=== PATIENT | female | born 1980 | race Caucasian/White ===

== ENCOUNTER 2018-04-04 20:10 | Emergency (ER) | payer OTHER ==
[~2018-04-04] VITALS: Ht 162.6 cm; Wt 62.0 kg
[2018-04-04] MEDS ORDERED: LORazepam 1 MG tablet PO ONE (20:25)
[2018-04-04 21:28] LABS: ALANINE AMINOTRANSFERASE 21 U/L (12-78); ALBUMIN 3.9 G/DL (3.4-5.0); ALBUMIN/GLOBULIN RATIO 1.2 (1.1-1.5); ALKALINE PHOSPHATASE 57 IU/L (46-116); ANION GAP 8 (8-16); ASPARTATE AMINO TRANSFERASE 12 U/L (10-37); BILIRUBIN,TOTAL 0.7 MG/DL (0.1-1.0); BLOOD UREA NITROGEN 6 MG/DL (7-18); BUN/CREATININE RATIO 7.5 (6.6-38.0); CALCIUM 8.8 MG/DL (8.5-10.1); CHLORIDE 104 MMOL/L (99-107); GLUCOSE 104 MG/DL (70-104); POTASSIUM 3.6 MMOL/L (3.5-5.1); SODIUM 138 MMOL/L (135-145); TOTAL CARBON DIOXIDE 26.4 MMOL/L (24-32); TOTAL PROTEIN 7.1 G/DL (6.4-8.2); eGFR 82 ML/MIN
[2018-04-04 21:30] LABS: BASOPHILS # (AUTO) 0.1 X10'3 (0-0.2); BASOPHILS % (AUTO) 0.9 % (0-1); EOSINOPHILS # (AUTO) 0.1 X10'3 (0-0.9); HEMOGLOBIN 12.9 g/dl (12.0-16.0); LYMPHOCYTES # (AUTO) 1.4 X10'3 (1.1-4.8); LYMPHOCYTES % (AUTO) 20.6 % (21-51); MEAN CORPUSCULAR HGB CONC 33.8 % (33.0-36.5); MEAN CORPUSCULAR VOLUME 88.7 FL (78-98); MEAN PLATELET VOLUME 11.2 FL (7.4-10.4); MONOCYTES # (AUTO) 0.7 X10'3 (0-0.9); MONOCYTES % (AUTO) 10.3 % (2-12); NEUTROPHILS # (AUTO) 4.3 X10'3 (1.8-7.7); NEUTROPHILS % (AUTO) 66.2 % (42-75); PLATELET COUNT 155 X10'3 (140-440); RED BLOOD COUNT 4.28 X10'6 (4.20-5.60); RED CELL DISTRIBUTION WIDTH 12.8 % (11.5-14.5); WHITE BLOOD COUNT 6.6 X10'3 (4.5-11.0)
[2018-04-04 21:41] LABS: ACETAMINOPHEN < 2.0 UG/ML (10-30)
[2018-04-04 21:47] LABS: ETHANOL < 0.010 GM/DL (0.0-0.010)
[2018-04-04 21:51] LABS: CLARITY,URINE SLIGHTLY CLOUDY (Clear); COLOR,URINE YELLOW (Yellow); GLUCOSE, URINE NEGATIVE (Neg); KETONES,URINE 15 mg/dl (Neg); LEUKOCYTE ESTERASE ,URINE LARGE (Neg); NITRITES, URINE NEGATIVE (Neg); OCCULT BLOOD,URINE LARGE (Neg); PROTEIN,URINE NEGATIVE (Neg); UROBILINOGEN,URINE 0.2 E.U/dL (0.2-1.0)
[2018-04-04 21:53] LABS: URINE HCG NEGATIVE (NEG)
[2018-04-04 22:03] LABS: URINE AMPHETAMINE SCREEN NEGATIVE (Neg); URINE BARBITUATE SCREEN NEGATIVE (Neg); URINE BENZODIAZEPINES SCREEN NEGATIVE (Neg); URINE CANNABINOID SCREEN NEGATIVE (Neg); URINE COCAINE SCREEN NEGATIVE (Neg); URINE METHADONE SCREEN NEGATIVE (Neg); URINE OPIATE SCREEN NEGATIVE (Neg); URINE PHENCYCLIDINE SCREEN NEGATIVE (Neg)
[2018-04-04 22:07] LABS: UA COLLECTION TYPE CLN CATCH MIDSTREAM
[2018-04-04 22:08] LABS: RBC,URINE 20-50 /HPF (0-2); WBC,URINE 50-100 /HPF (0-4)
[2018-04-04 22:09] LABS: BACTERIA,URINE 2+ /HPF (Neg); SQUAMOUS EPITHELIAL CELL,UR FEW /LPF (FEW)
[2018-04-04] MEDS ORDERED: CIPR-259 PO (22:23)
[2018-04-04] MEDS ORDERED: LORA1TAB PO (22:23)
[2018-04-04] MEDS ORDERED: ciprofloxacin 250mg tablet PO ONE (22:25)
[2018-04-04 22:36] VITALS: BP 137/70
== END 2018-04-04 22:38 | disposition home or self-care (01) ==
LOC: ER 20:11
DX: N39.0 Urinary tract infection, site not specified (principal); F41.9 Anxiety disorder, unspecified; Z79.899 Other long term (current) drug therapy
CPT/HCPCS: 36415; 80053; 80305; 80320; 80329; 81001; 81025; 82948; 84443; 85025; 99284

== ENCOUNTER 2018-04-05 17:25 | Emergency (ER) | payer OTHER ==
[~2018-04-05] VITALS: Ht 170.2 cm; Wt 66.0 kg
[~2018-04-05 17:25] MED LIST: CIPR-259 PO; LORA1TAB PO
[2018-04-05 18:17] LABS: BASOPHILS % (AUTO) 0.4 % (0-1); EOSINOPHILS # (AUTO) 0.1 X10'3 (0-0.9); EOSINOPHILS % (AUTO) 1.3 % (0-6); HEMATOCRIT 40.6 % (35.0-45.0); LYMPHOCYTES # (AUTO) 1.2 X10'3 (1.1-4.8); LYMPHOCYTES % (AUTO) 16.3 % (21-51); MEAN CORPUSCULAR HEMOGLOBIN 30.5 PG (27.0-31.0); MEAN CORPUSCULAR HGB CONC 34.4 % (33.0-36.5); MEAN CORPUSCULAR VOLUME 88.5 FL (78-98); MEAN PLATELET VOLUME 10.8 FL (7.4-10.4); MONOCYTES # (AUTO) 0.6 X10'3 (0-0.9); MONOCYTES % (AUTO) 8.2 % (2-12); NEUTROPHILS # (AUTO) 5.3 X10'3 (1.8-7.7); NEUTROPHILS % (AUTO) 73.8 % (42-75); PLATELET COUNT 177 X10'3 (140-440); RED BLOOD COUNT 4.58 X10'6 (4.20-5.60); WHITE BLOOD COUNT 7.2 X10'3 (4.5-11.0)
[2018-04-05 18:32] LABS: ALANINE AMINOTRANSFERASE 24 U/L (12-78); ALBUMIN 4.1 G/DL (3.4-5.0); ALBUMIN/GLOBULIN RATIO 1.1 (1.1-1.5); ALKALINE PHOSPHATASE 71 IU/L (46-116); ANION GAP 6 (8-16); ASPARTATE AMINO TRANSFERASE 9 U/L (10-37); BILIRUBIN,TOTAL 0.8 MG/DL (0.1-1.0); BLOOD UREA NITROGEN 10 MG/DL (7-18); BUN/CREATININE RATIO 13.7 (6.6-38.0); CALCIUM 9.2 MG/DL (8.5-10.1); CHLORIDE 103 MMOL/L (99-107); CREATININE 0.73 MG/DL (0.40-0.90); GLUCOSE 104 MG/DL (70-104); POTASSIUM 3.7 MMOL/L (3.5-5.1); SODIUM 138 MMOL/L (135-145); TOTAL CARBON DIOXIDE 29.3 MMOL/L (24-32); TOTAL PROTEIN 7.7 G/DL (6.4-8.2); eGFR > 90 ML/MIN
[2018-04-05 18:42] LABS: ETHANOL < 0.010 GM/DL (0.0-0.010)
[2018-04-05 19:32] LABS: CLARITY,URINE CLEAR (Clear); COLOR,URINE YELLOW (Yellow); GLUCOSE, URINE NEGATIVE (Neg); KETONES,URINE NEGATIVE (Neg); LEUKOCYTE ESTERASE ,URINE SMALL (Neg); NITRITES, URINE NEGATIVE (Neg); OCCULT BLOOD,URINE LARGE (Neg); PROTEIN,URINE NEGATIVE (Neg); UROBILINOGEN,URINE 0.2 E.U/dL (0.2-1.0)
[2018-04-05 19:34] LABS: URINE HCG NEGATIVE (NEG)
[2018-04-05 19:36] LABS: UA COLLECTION TYPE CLN CATCH MIDSTREAM
[2018-04-05 19:46] LABS: URINE AMPHETAMINE SCREEN NEGATIVE (Neg); URINE BARBITUATE SCREEN NEGATIVE (Neg); URINE BENZODIAZEPINES SCREEN NEGATIVE (Neg); URINE CANNABINOID SCREEN NEGATIVE (Neg); URINE COCAINE SCREEN NEGATIVE (Neg); URINE METHADONE SCREEN NEGATIVE (Neg); URINE OPIATE SCREEN NEGATIVE (Neg); URINE PHENCYCLIDINE SCREEN NEGATIVE (Neg)
[2018-04-05 19:49] LABS: BACTERIA,URINE FEW /HPF (Neg); SQUAMOUS EPITHELIAL CELL,UR FEW /LPF (FEW)
[2018-04-06] MEDS ORDERED: LORazepam 1 MG tablet PO ONE (02:25)
[2018-04-06 07:34] LABS: CLARITY,URINE SLIGHTLY CLOUDY (Clear); COLOR,URINE STRAW (Yellow); GLUCOSE, URINE NEGATIVE (Neg); KETONES,URINE TRACE mg/dl (Neg); LEUKOCYTE ESTERASE ,URINE TRACE (Neg); NITRITES, URINE NEGATIVE (Neg); OCCULT BLOOD,URINE LARGE (Neg); PROTEIN,URINE NEGATIVE (Neg); UA COLLECTION TYPE CLN CATCH MIDSTREAM; UROBILINOGEN,URINE 0.2 E.U/dL (0.2-1.0)
[2018-04-06 07:44] LABS: BACTERIA,URINE FEW /HPF (Neg); RBC,URINE TNTC /HPF (0-2); SQUAMOUS EPITHELIAL CELL,UR FEW /LPF (FEW)
[2018-04-06] MEDS ORDERED: sulfamethoxazole/trimethoprim DS (800/160mg) tablet PO SCH (08:00)
[2018-04-06] MEDS ORDERED: LORazepam 1 MG tablet PO PRN (10:00)
[2018-04-06 17:31] VITALS: BP 107/65
[2018-04-06] MEDS ORDERED: lactobacillus rhamnosus 10,000 MMU CELLS/CAPSULE PO SCH (20:00)
[2018-04-06] MEDS ORDERED: quetiapine 100mg tablet PO SCH (21:00)
== END 2018-04-06 19:06 ==
LOC: ER 17:26
DX: F22 Delusional disorders (principal); F43.9 Reaction to severe stress, unspecified; F41.9 Anxiety disorder, unspecified; Z79.899 Other long term (current) drug therapy
CPT/HCPCS: 36415; 80053; 80305; 80320; 81001; 81025; 84443; 85025; 87088; 99285

== ENCOUNTER 2018-04-28 23:04 | Emergency (ER) | payer OTHER ==
[~2018-04-28] VITALS: Ht 170.2 cm; Wt 64.0 kg
[~2018-04-28 23:04] MED LIST changes: -CIPR-259 PO
[2018-04-28 23:08] VITALS: BP 121/64
[2018-04-29 02:16] LABS: BASOPHILS % (AUTO) 1.1 % (0-1); EOSINOPHILS # (AUTO) 0.1 X10'3 (0-0.9); EOSINOPHILS % (AUTO) 2.6 % (0-6); HEMATOCRIT 38.4 % (35.0-45.0); HEMOGLOBIN 13.1 g/dl (12.0-16.0); LYMPHOCYTES # (AUTO) 1.4 X10'3 (1.1-4.8); LYMPHOCYTES % (AUTO) 31.3 % (21-51); MEAN CORPUSCULAR HEMOGLOBIN 30.7 PG (27.0-31.0); MEAN CORPUSCULAR HGB CONC 34.2 % (33.0-36.5); MEAN CORPUSCULAR VOLUME 89.7 FL (78-98); MEAN PLATELET VOLUME 10.9 FL (7.4-10.4); MONOCYTES # (AUTO) 0.5 X10'3 (0-0.9); MONOCYTES % (AUTO) 10.7 % (2-12); NEUTROPHILS # (AUTO) 2.4 X10'3 (1.8-7.7); NEUTROPHILS % (AUTO) 54.3 % (42-75); PLATELET COUNT 136 X10'3 (140-440); RED BLOOD COUNT 4.28 X10'6 (4.20-5.60); RED CELL DISTRIBUTION WIDTH 12.8 % (11.5-14.5); WHITE BLOOD COUNT 4.5 X10'3 (4.5-11.0)
[2018-04-29 02:21] LABS: ALANINE AMINOTRANSFERASE 19 U/L (12-78); ALBUMIN/GLOBULIN RATIO 1.3 (1.1-1.5); ALKALINE PHOSPHATASE 62 IU/L (46-116); ANION GAP 8 (8-16); ASPARTATE AMINO TRANSFERASE 13 U/L (10-37); BILIRUBIN,TOTAL 1.2 MG/DL (0.1-1.0); BLOOD UREA NITROGEN 5 MG/DL (7-18); CALCIUM 8.9 MG/DL (8.5-10.1); CHLORIDE 103 MMOL/L (99-107); CREATININE 0.71 MG/DL (0.40-0.90); GLUCOSE 89 MG/DL (70-104); POTASSIUM 3.8 MMOL/L (3.5-5.1); SODIUM 138 MMOL/L (135-145); TOTAL CARBON DIOXIDE 26.7 MMOL/L (24-32); TOTAL PROTEIN 7.2 G/DL (6.4-8.2); eGFR > 90 ML/MIN
== END 2018-04-29 04:15 | disposition home or self-care (01) ==
LOC: ER 23:04
DX: M79.1 Myalgia (principal); R10.13 Epigastric pain; M54.9 Dorsalgia, unspecified; M54.2 Cervicalgia; Z79.899 Other long term (current) drug therapy
CPT/HCPCS: 36415; 80053; 85025; 99284; J7030

== ENCOUNTER 2019-04-07 21:15 | Emergency (ER) | payer MEDICAID, OTHER ==
[~2019-04-07] VITALS: Ht 170.2 cm; Wt 63.1 kg
[2019-04-07 23:37] VITALS: BP 99/64
[2019-06-14] MEDS ORDERED: RISP2TAB3 PO (12:18)
== END 2019-04-07 23:38 | disposition home or self-care (01) ==
LOC: ER 21:16
DX: F41.9 Anxiety disorder, unspecified (principal); F41.0 Panic disorder [episodic paroxysmal anxiety]
CPT/HCPCS: 82948; 99284

== ENCOUNTER 2019-04-08 10:52 | Emergency (ER) | payer OTHER ==
[~2019-04-08] VITALS: Ht 170.2 cm; Wt 59.1 kg
[2019-04-08 10:57] VITALS: BP 127/72
[2019-04-08 11:25] LABS: BASOPHILS # (AUTO) 0.1 X10'3 (0-0.2); BASOPHILS % (AUTO) 1.4 % (0-1); EOSINOPHILS # (AUTO) 0.1 X10'3 (0-0.9); EOSINOPHILS % (AUTO) 2.1 % (0-6); HEMATOCRIT 41.8 % (35.0-45.0); HEMOGLOBIN 14.3 g/dl (12.0-16.0); LYMPHOCYTES # (AUTO) 0.9 X10'3 (1.1-4.8); LYMPHOCYTES % (AUTO) 14.3 % (21-51); MEAN CORPUSCULAR HGB CONC 34.3 g/dL (33.0-36.5); MEAN CORPUSCULAR VOLUME 90.4 FL (78-98); MEAN PLATELET VOLUME 9.4 FL (7.4-10.4); MONOCYTES # (AUTO) 0.5 X10'3 (0-0.9); MONOCYTES % (AUTO) 7.8 % (2-12); NEUTROPHILS # (AUTO) 4.7 X10'3 (1.8-7.7); NEUTROPHILS % (AUTO) 74.4 % (42-75); PLATELET COUNT 202 X10'3 (140-440); RED BLOOD COUNT 4.62 X10'6 (4.20-5.60); RED CELL DISTRIBUTION WIDTH 12.4 % (11.5-14.5); WHITE BLOOD COUNT 6.4 X10'3 (4.5-11.0)
[2019-04-08 11:37] LABS: ALANINE AMINOTRANSFERASE 25 U/L (12-78); ALBUMIN 4.2 G/DL (3.4-5.0); ALBUMIN/GLOBULIN RATIO 1.1 (1.1-1.5); ALKALINE PHOSPHATASE 64 IU/L (46-116); ANION GAP 11 (8-16); ASPARTATE AMINO TRANSFERASE 10 U/L (10-37); BILIRUBIN,TOTAL 1.1 MG/DL (0.1-1.0); BLOOD UREA NITROGEN 10 MG/DL (7-18); BUN/CREATININE RATIO 13.7 (6.6-38.0); CALCIUM 9.3 MG/DL (8.5-10.1); CHLORIDE 102 MMOL/L (99-107); CREATININE 0.73 MG/DL (0.40-0.90); GLUCOSE 69 MG/DL (70-104); POTASSIUM 4.3 MMOL/L (3.5-5.1); SODIUM 135 MMOL/L (135-145); TOTAL CARBON DIOXIDE 22.2 MMOL/L (24-32); TOTAL PROTEIN 8.1 G/DL (6.4-8.2); eGFR 90 ML/MIN
[2019-04-08 11:43] LABS: URINE HCG NEGATIVE (NEG)
[2019-06-14] MEDS ORDERED: RISP2TAB3 PO (12:18)
== END 2019-04-08 12:22 | disposition home or self-care (01) ==
LOC: ER 10:52
DX: R10.9 Unspecified abdominal pain (principal); R53.83 Other fatigue; F41.9 Anxiety disorder, unspecified
CPT/HCPCS: 36415; 80053; 81025; 85025; 99283

== ENCOUNTER 2019-04-11 13:22 | Emergency (ER) | payer OTHER ==
[~2019-04-11] VITALS: Ht 170.2 cm; Wt 74.5 kg
[2019-04-11] MEDS ORDERED: epiNEPHrine 1 mg/ml inj IM STA (13:42)
[2019-04-11 14:06] LABS: BASOPHILS # (AUTO) 0.1 X10'3 (0-0.2); BASOPHILS % (AUTO) 0.9 % (0-1); EOSINOPHILS # (AUTO) 0.4 X10'3 (0-0.9); EOSINOPHILS % (AUTO) 4.8 % (0-6); HEMATOCRIT 41.6 % (35.0-45.0); HEMOGLOBIN 14.1 g/dl (12.0-16.0); LYMPHOCYTES # (AUTO) 1.4 X10'3 (1.1-4.8); LYMPHOCYTES % (AUTO) 18.9 % (21-51); MEAN CORPUSCULAR HEMOGLOBIN 30.4 PG (27.0-31.0); MEAN CORPUSCULAR HGB CONC 33.8 g/dL (33.0-36.5); MEAN CORPUSCULAR VOLUME 89.9 FL (78-98); MEAN PLATELET VOLUME 9.8 FL (7.4-10.4); MONOCYTES # (AUTO) 0.6 X10'3 (0-0.9); MONOCYTES % (AUTO) 8.2 % (2-12); NEUTROPHILS # (AUTO) 4.9 X10'3 (1.8-7.7); NEUTROPHILS % (AUTO) 67.2 % (42-75); PLATELET COUNT 188 X10'3 (140-440); RED BLOOD COUNT 4.63 X10'6 (4.20-5.60); RED CELL DISTRIBUTION WIDTH 12.6 % (11.5-14.5); WHITE BLOOD COUNT 7.4 X10'3 (4.5-11.0)
[2019-04-11 14:18] LABS: ALANINE AMINOTRANSFERASE 21 U/L (12-78); ALBUMIN 3.9 G/DL (3.4-5.0); ALBUMIN/GLOBULIN RATIO 1.1 (1.1-1.5); ALKALINE PHOSPHATASE 59 IU/L (46-116); ANION GAP 11 (8-16); ASPARTATE AMINO TRANSFERASE 8 U/L (10-37); BILIRUBIN,TOTAL 0.9 MG/DL (0.1-1.0); BLOOD UREA NITROGEN 10 MG/DL (7-18); CALCIUM 8.8 MG/DL (8.5-10.1); CHLORIDE 103 MMOL/L (99-107); CREATININE 0.77 MG/DL (0.40-0.90); ETHANOL < 0.010 GM/DL (0.0-0.010); GLUCOSE 81 MG/DL (70-104); POTASSIUM 3.6 MMOL/L (3.5-5.1); SODIUM 138 MMOL/L (135-145); TOTAL CARBON DIOXIDE 24.5 MMOL/L (24-32); TOTAL PROTEIN 7.5 G/DL (6.4-8.2); eGFR 85 ML/MIN
[2019-04-11 14:36] LABS: URINE HCG NEGATIVE (NEG)
[2019-04-11 14:39] LABS: CLARITY,URINE SLIGHTLY CLOUDY (Clear); COLOR,URINE STRAW (Yellow); GLUCOSE, URINE NEGATIVE (Neg); KETONES,URINE >=80 mg/dl (Neg); LEUKOCYTE ESTERASE ,URINE MODERATE (Neg); NITRITES, URINE NEGATIVE (Neg); OCCULT BLOOD,URINE NEGATIVE (Neg); PH,URINE 5.5 (4.8-8.0); PROTEIN,URINE NEGATIVE (Neg); UROBILINOGEN,URINE 0.2 E.U/dL (0.2-1.0)
[2019-04-11 14:42] LABS: UA COLLECTION TYPE CLN CATCH MIDSTREAM
[2019-04-11 14:43] LABS: URINE AMPHETAMINE SCREEN NEGATIVE (Neg); URINE BARBITUATE SCREEN NEGATIVE (Neg); URINE BENZODIAZEPINES SCREEN NEGATIVE (Neg); URINE CANNABINOID SCREEN NEGATIVE (Neg); URINE COCAINE SCREEN NEGATIVE (Neg); URINE METHADONE SCREEN NEGATIVE (Neg); URINE OPIATE SCREEN NEGATIVE (Neg); URINE PHENCYCLIDINE SCREEN NEGATIVE (Neg)
[2019-04-11 14:45] LABS: BACTERIA,URINE 1+ /HPF (Neg); HYALINE CASTS 0-3 /LPF (NEGATIVE); MUCUS STRANDS FEW /LPF (Neg); RBC,URINE 0-2 /HPF (0-2); SQUAMOUS EPITHELIAL CELL,UR MODERATE /LPF (FEW)
[2019-04-11] MEDS ORDERED: CEPH250T PO (14:49)
[2019-04-11 15:05] VITALS: BP 127/86
[2019-06-14] MEDS ORDERED: RISP2TAB3 PO (12:18)
== END 2019-04-11 15:06 | disposition home or self-care (01) ==
LOC: ER 13:23
DX: N39.0 Urinary tract infection, site not specified (principal); R53.1 Weakness; R53.83 Other fatigue; R11.0 Nausea; F41.9 Anxiety disorder, unspecified; Z79.899 Other long term (current) drug therapy
CPT/HCPCS: 36415; 80053; 80305; 80320; 81001; 81025; 85025; 87088; 99283

== ENCOUNTER 2019-05-27 04:20 | Emergency (ER) | payer MEDICAID, OTHER ==
[~2019-05-27] VITALS: Ht 170.2 cm; Wt 68.2 kg
[2019-05-27 04:56] LABS: URINE HCG NEGATIVE (NEG)
[2019-05-27 04:57] LABS: BASOPHILS # (AUTO) 0.1 X10'3 (0-0.2); BASOPHILS % (AUTO) 1.4 % (0-1); COLOR,URINE YELLOW (Yellow); EOSINOPHILS # (AUTO) 0.1 X10'3 (0-0.9); GLUCOSE, URINE NEGATIVE (Neg); HEMATOCRIT 40.7 % (35.0-45.0); HEMOGLOBIN 13.7 g/dl (12.0-16.0); KETONES,URINE 15 mg/dl (Neg); LEUKOCYTE ESTERASE ,URINE LARGE (Neg); LYMPHOCYTES # (AUTO) 0.8 X10'3 (1.1-4.8); MEAN CORPUSCULAR HEMOGLOBIN 30.8 PG (27.0-31.0); MEAN CORPUSCULAR HGB CONC 33.7 g/dL (33.0-36.5); MEAN CORPUSCULAR VOLUME 91.3 FL (78-98); MEAN PLATELET VOLUME 10.4 FL (7.4-10.4); MONOCYTES # (AUTO) 0.5 X10'3 (0-0.9); MONOCYTES % (AUTO) 10.1 % (2-12); NEUTROPHILS # (AUTO) 3.9 X10'3 (1.8-7.7); NEUTROPHILS % (AUTO) 71.5 % (42-75); NITRITES, URINE NEGATIVE (Neg); OCCULT BLOOD,URINE TRACE-INTACT (Neg); PLATELET COUNT 167 X10'3 (140-440); PROTEIN,URINE NEGATIVE (Neg); RED BLOOD COUNT 4.46 X10'6 (4.20-5.60); RED CELL DISTRIBUTION WIDTH 12.7 % (11.5-14.5); UROBILINOGEN,URINE 0.2 E.U/dL (0.2-1.0); WHITE BLOOD COUNT 5.4 X10'3 (4.5-11.0)
[2019-05-27 05:03] LABS: CLARITY,URINE SLIGHTLY CLOUDY (Clear); UA COLLECTION TYPE CLN CATCH MIDSTREAM
[2019-05-27 05:04] LABS: BACTERIA,URINE FEW /HPF (Neg); RBC,URINE 0-2 /HPF (0-2); SQUAMOUS EPITHELIAL CELL,UR FEW /LPF (FEW)
[2019-05-27 05:12] LABS: ALANINE AMINOTRANSFERASE 20 U/L (12-78); ALBUMIN 4.3 G/DL (3.4-5.0); ALBUMIN/GLOBULIN RATIO 1.3 (1.1-1.5); ALKALINE PHOSPHATASE 63 IU/L (46-116); ANION GAP 14 (8-16); ASPARTATE AMINO TRANSFERASE 11 U/L (10-37); BLOOD UREA NITROGEN 8 MG/DL (7-18); BUN/CREATININE RATIO 12.1 (6.6-38.0); CALCIUM 8.4 MG/DL (8.5-10.1); CHLORIDE 104 MMOL/L (99-107); CREATININE 0.66 MG/DL (0.40-0.90); GLUCOSE 103 MG/DL (70-104); POTASSIUM 3.4 MMOL/L (3.5-5.1); SODIUM 139 MMOL/L (135-145); TOTAL CARBON DIOXIDE 20.9 MMOL/L (24-32); TOTAL PROTEIN 7.7 G/DL (6.4-8.2); URINE AMPHETAMINE SCREEN NEGATIVE (Neg); URINE BARBITUATE SCREEN NEGATIVE (Neg); URINE BENZODIAZEPINES SCREEN NEGATIVE (Neg); URINE CANNABINOID SCREEN NEGATIVE (Neg); URINE COCAINE SCREEN NEGATIVE (Neg); URINE METHADONE SCREEN NEGATIVE (Neg); URINE OPIATE SCREEN NEGATIVE (Neg); URINE PHENCYCLIDINE SCREEN NEGATIVE (Neg); eGFR > 90 ML/MIN
[2019-05-27 05:21] LABS: ETHANOL < 0.010 GM/DL (0.0-0.010)
--- NOTE | 2019-05-27 06:01 | NUR ---
Packet faxed to [facility]. Unable to confirm receipt of packet as [id number] hours.
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
--- NOTE | 2019-05-27 07:00 | NUR ---
Pt laying in bed, eyes open, staring at the ceiling. Pt very polite and was agreeable to am assessment. Pt did c/o pain in left pinky toe. xray ordered.
--- NOTE | 2019-05-27 09:00 | NUR ---
Pt continues to rest in bed without complaints. Pt did not eat breakfast. Xray of left toe completed. Some swelling noted, but no fracture or dislocation noted. Pt assessed by [facility] and they are upholding 5150 for grave disability.
--- NOTE | 2019-05-27 10:09 | NUR ---
Sitting chair placed at bedside for pt as pt wanting to get OOB and sit in chair.
--- NOTE | 2019-05-27 11:00 | NUR ---
Pt standing in one spot staring at the wall. Pt stated she was feeling scared and unsafe here now. Pt reassured and offered medicine which she declined and said she was going to be calm and safe.
--- NOTE | 2019-05-27 13:00 | NUR ---
Pt pacing the unit and has a suspicious glare in her eyes. Pt again offered medications which she refused. Pt did endorse feeling scare about being here. Pt reassured of her safety which she didn't seem to accept.
--- NOTE | 2019-05-27 13:18 | NUR ---
Pt refuses all meals. States that we are trying to poison her with the food, demands "organic". Around 0900, respect, I placed a call to the kitchen and stated the patients needs. I was then informed that the food was organic and such. The patient continued to refuse the food and demand we exlp
[2019-05-27] MEDS: ciprofloxacin 250mg tablet PO SCH ×3 (14:00→23:03)
--- NOTE | 2019-05-27 15:00 | NUR ---
Pt went into the bathroom and was scared to come out, stating she was still trying to use the bathroom.
--- NOTE | 2019-05-27 15:58 | NUR ---
PT refused all meds from RN, refused food (again) and demanded a new room. She was moved to bed 22 per RN direction.
--- NOTE | 2019-05-27 17:00 | NUR ---
Pt tore off her anti elopement band and threw it in the corner. When approached, pt remains calm, but continues to refuse medications, including antibiotics which have been offered both orally and IM. Pt informed that [facility] has accepted her pending her compliance to treat her urinary infection. Pt continues to refuse and states she doesn't believe in medications. Pt stated she's being held against her will and the 5150 process was explained to her. Pt resistive to information.
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
--- NOTE | 2019-05-27 18:30 | NUR ---
Assumed care of patient. She is standing in the corner looking at the wall. She is in no apparent distress.
[2019-05-27] MEDS ORDERED: OLANZapine 2.5MG tablet PO STA (22:32)
[2019-05-27] MEDS ORDERED: ibuprofen tablet 400 MG TABLET PO ONE (22:35)
[2019-05-27] MEDS ORDERED: LORazepam 1 MG tablet PO ONE (22:35)
--- NOTE | 2019-05-27 22:46 | NUR ---
Patient is lying in bed. She is calm and quiet, making no c/o at this time.
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
--- NOTE | 2019-05-28 01:55 | NUR ---
The patient is sleeping on her back. Resp are even and unlabored. No s/s of distress noted.
--- NOTE | 2019-05-28 04:01 | NUR ---
The patient is asleep on her left side. Respirations are even and unlabored. No s/s of distress noted.
--- NOTE | 2019-05-28 05:38 | NUR ---
No AM vitals taken as per RN.
--- NOTE | 2019-05-28 06:30 | NUR ---
Asleep upon change of shift observation. Color and breathing WNL. Undisturbed at this time.
--- NOTE | 2019-05-28 07:30 | NUR ---
Awake at this time. Out of bed to use to bathroom. Talking to self as she walks into the bathroom. Continues to talk with herself as she leaves the bathroom. Spoke with patient at her bedside. Patient able to perform mini mental status exam. Asked if she was hearing voices. Denies hearing voices.
[2019-05-28] MEDS ORDERED: haloperidol 5mg tablet PO ONE (07:45)
[2019-05-28] MEDS ORDERED: LORazepam 1 MG tablet PO ONE (07:45)
[2019-05-28] MEDS ORDERED: diphenhydrAMINE 25mg capsule PO ONE (07:45)
--- NOTE | 2019-05-28 07:53 | NUR ---
Patient presents as restless and uncomfortable. None stop talking to self. Denies internal stimuli. Cannot make herself comfortable in bed. Offered medications to increase comfort and decrease internal stimulation. Patient accepted medications with initial hesitation then took them without event.
[2019-05-28] MEDS ORDERED: ciprofloxacin 250mg tablet PO ONE (08:00)
--- NOTE | 2019-05-28 08:30 | NUR ---
Offered breakfast and morning medication. Patient proceeded to pray over her meds and did not take a bite of food. Encouraged to eat after 20 minutes of praying.
--- NOTE | 2019-05-28 09:30 | NUR ---
Ate small bites of food. Continues to be too preoccupied with internal stimuli to concentrate on eating.
--- NOTE | 2019-05-28 10:30 | NUR ---
Napping at this time. Color and breathing WNL. In line of sight of staff at all times.
--- NOTE | 2019-05-28 13:00 | NUR ---
Slept until lunch time. Awakenend self and sat on the edge of her bed, quietly and intently talking to self. Served her lunch tray. Stared at her food. States she is "not sure if I can eat this right now." Encouraged to begin eating and do the best she can to finish at least half of her food. Patient agreed to do so. Ate 50 % of her protein. Refused the rest of her meal. Appears to be too preoccupied with internal stimuli to focus on feeding self.
--- NOTE | 2019-05-28 15:00 | NUR ---
Napped until this time then came to the nurse's station and stated she was "feeling someone touching me" in her bed. Asked to be moved to a "different room." Patient moved to Bed 20 to her relief and satisfaction.
--- NOTE | 2019-05-28 17:38 | NUR ---
Slept for remainder of the afternoon. Could be heard moaning to herself or making whispering sounds while she sleeps. Lays motionless in bed, on her back as she sleeps. In line of sight of staff at all times.
[2019-05-28 17:56] VITALS: BP 107/81
[2019-05-28] MEDS: ciprofloxacin 250mg tablet PO SCH (20:31)
[2019-05-28] MEDS ORDERED: NO HOME MEDS (20:40)
[2019-06-14] MEDS ORDERED: RISP2TAB3 PO (12:18)
== END 2019-05-28 20:53 ==
LOC: ER 04:20
DX: F23 Brief psychotic disorder (principal); F22 Delusional disorders; R10.84 Generalized abdominal pain; R35.8 Other polyuria; F41.9 Anxiety disorder, unspecified
CPT/HCPCS: 36415; 73660; 80053; 80305; 80320; 81001; 81025; 84443; 85025; 99285; Q0163

== ENCOUNTER 2019-05-28 20:14 | Inpatient (IN) | payer MEDICAID ==
[~2019-05-28] VITALS: Ht 170.2 cm; Wt 71.2 kg
[2019-05-28] MEDS ORDERED: hydrOXYzine 25 MG tablet PO PRN (20:25)
[2019-05-28] MEDS ORDERED: loperamide 2mg capsule PO PRN (20:25)
[2019-05-28] MEDS ORDERED: acetaminophen 325mg tablet PO PRN ×2 (20:25)
[2019-05-28] MEDS ORDERED: magnesium hydroxide 30ml (MOM) UD suspension PO PRN (20:25)
[2019-05-28] MEDS ORDERED: LORazepam 1 MG tablet PO PRN (20:25)
[2019-05-28] MEDS ORDERED: NO HOME MEDS (20:40)
[2019-05-28 21:00] VITALS: BP 124/70
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
[2019-05-29 07:27] LABS: CHOL/HDL RATIO 1.6 (0.00-4.99); CHOLESTEROL 74 MG/DL (0-200); HDL CHOLESTEROL 46 MG/DL (35-60); LDL CHOLESTEROL 23 MG/DL (50-100); TRIGLYCERIDES 19 MG/DL (20-135)
[2019-05-29 08:12] LABS: HEMOGLOBIN A1C 4.7 % (4.5-6.2)
[2019-05-29] MEDS: ciprofloxacin 250mg tablet PO SCH ×2 (08:19→20:33)
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
[2019-05-29 20:00] VITALS: BP 108/71
[2019-05-29] MEDS: lactobacillus rhamnosus 10,000 MMU CELLS/CAPSULE PO SCH (20:32)
[2019-05-29] MEDS ORDERED: temazepam 15mg capsule PO PRN (22:55)
[2019-05-29] MEDS ORDERED: OLANZapine 5mg rapidly disint. tablet PO ONE (22:55)
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
[2019-05-30 07:30] VITALS: BP 103/64
[2019-05-30] MEDS: lactobacillus rhamnosus 10,000 MMU CELLS/CAPSULE PO SCH ×2 (08:01→20:25)
[2019-05-30] MEDS: ciprofloxacin 250mg tablet PO SCH ×2 (08:29→20:25)
[2019-05-30] MEDS: mag hydrox/Alum hydrox/simeth 30ml oral suspension PO PRN (16:24)
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
[2019-05-30] MEDS ORDERED: OLANZapine 2.5MG tablet PO PRN (18:00)
[2019-05-30] MEDS: PALIPERIDONE 3 MG TAB.ER.24 PO SCH (18:07)
--- NOTE | 2019-05-30 18:19 | NUR ---
Pt. took her first dose of Invega tonight. Later RN found pt. in tears. Pt. states, "I don't agree with the way my treatment is going... Pt. states, "I understand I got myself into this situation... and I trust God is in control". Pt. reports that she is not suicidal. Pt. states "I don't want to talk anymore because I understand that everything I say is being recorded".
[2019-05-30 19:41] VITALS: BP 132/67
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
[2019-05-31 07:16] VITALS: BP 101/64
[2019-05-31] MEDS: lactobacillus rhamnosus 10,000 MMU CELLS/CAPSULE PO SCH ×2 (08:13→19:28)
[2019-05-31] MEDS: ciprofloxacin 250mg tablet PO SCH ×2 (08:13→19:28)
[2019-05-31] MEDS: mag hydrox/Alum hydrox/simeth 30ml oral suspension PO PRN ×2 (09:44→15:41)
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
[2019-05-31] MEDS: PALIPERIDONE 3 MG TAB.ER.24 PO SCH (18:01)
[2019-05-31] MEDS ORDERED: PALIPERIDONE 3 MG TAB.ER.24 PO ONE (18:30)
[2019-05-31 20:02] VITALS: BP 120/78
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
[2019-06-01 08:00] VITALS: BP 92/45
[2019-06-01 08:05] VITALS: BP 106/65
[2019-06-01] MEDS: lactobacillus rhamnosus 10,000 MMU CELLS/CAPSULE PO SCH ×2 (08:37→19:33)
[2019-06-01] MEDS: ciprofloxacin 250mg tablet PO SCH ×2 (08:37→19:33)
--- NOTE | 2019-06-01 12:56 | NUR ---
Patient has good appetite, eating well, 75-100% PO intake of regular diet. No nutrition problem at this time. Recommend: 1. continue regular diet 2. bowel care if s/s of constipation with no BM >2 days 3. weekly weights Addendum: 06/01/19 at [address] Amended: Links added.
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
[2019-06-01] MEDS: PALIPERIDONE 3 MG TAB.ER.24 PO SCH ×2 (18:00→18:14)
[2019-06-01 20:00] VITALS: BP 103/59
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
[2019-06-02] MEDS: lactobacillus rhamnosus 10,000 MMU CELLS/CAPSULE PO SCH ×2 (07:26→19:19)
[2019-06-02] MEDS: ciprofloxacin 250mg tablet PO SCH ×2 (07:26→19:19)
[2019-06-02 07:30] VITALS: BP 94/60
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
[2019-06-02] MEDS: PALIPERIDONE 3 MG TAB.ER.24 PO SCH (17:45)
[2019-06-02 20:00] VITALS: BP 103/53
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
[2019-06-03] MEDS: lactobacillus rhamnosus 10,000 MMU CELLS/CAPSULE PO SCH ×2 (07:06→20:43)
[2019-06-03] MEDS: ciprofloxacin 250mg tablet PO SCH (07:06)
[2019-06-03 08:00] VITALS: BP 105/54
[2019-06-03 08:12] VITALS: BP 105/53
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
[2019-06-03] MEDS: PALIPERIDONE 3 MG TAB.ER.24 PO SCH (19:05)
[2019-06-03 20:12] VITALS: BP 103/92
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
[2019-06-04] MEDS: lactobacillus rhamnosus 10,000 MMU CELLS/CAPSULE PO SCH ×2 (07:06→20:06)
[2019-06-04 07:44] VITALS: BP 91/55
--- NOTE | 2019-06-04 10:54 | NUR ---
DISCHARGE PLANNING: Spoke with Dr. John, he reports that client will see him on dc, updated record, he will let us know this afternoon if we can schedule an appointment with him
[2019-06-04] MEDS ORDERED: tuberculin, purif. prot. deriv. 5 units/0.1ml ID ONE (11:00)
--- NOTE | 2019-06-04 13:57 | NUR ---
DISCHARGE PLANNING: Faxed referral packet to [facility] and [facility]
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
--- NOTE | 2019-06-04 16:38 | NUR ---
Compressor Mechanic Bus for the [facility] was in to interview this patient.
[2019-06-04] MEDS: PALIPERIDONE 3 MG TAB.ER.24 PO SCH (18:53)
[2019-06-04 19:49] VITALS: BP 120/71
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
[2019-06-05] MEDS: lactobacillus rhamnosus 10,000 MMU CELLS/CAPSULE PO SCH ×2 (07:40→20:01)
[2019-06-05 08:00] VITALS: BP 97/57
--- NOTE | 2019-06-05 13:08 | NUR ---
DISCHARGE PLANNING: Accepted by [facility] as long as they have beds on day of dc, will not accept patients on fridays.
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
[2019-06-05] MEDS: PALIPERIDONE 3 MG TAB.ER.24 PO SCH (18:17)
[2019-06-05 19:28] VITALS: BP 97/62
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
[2019-06-06] MEDS: lactobacillus rhamnosus 10,000 MMU CELLS/CAPSULE PO SCH ×2 (08:09→19:16)
[2019-06-06 08:44] VITALS: BP 93/52
--- NOTE | 2019-06-06 15:16 | NUR ---
PPD results: no induration noted - negative result
[2019-06-06] MEDS ORDERED: CITALOpram 10mg tablet PO ONE (16:25)
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
[2019-06-06] MEDS: PALIPERIDONE 3 MG TAB.ER.24 PO SCH (17:51)
[2019-06-06 19:54] VITALS: BP 113/65
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
[2019-06-07] MEDS: citalopram 20mg tablet PO SCH (07:22)
[2019-06-07] MEDS: lactobacillus rhamnosus 10,000 MMU CELLS/CAPSULE PO SCH ×2 (07:22→20:11)
[2019-06-07 08:00] VITALS: BP 101/63
--- NOTE | 2019-06-07 11:16 | NUR ---
Reassessment: Pt continues meeting nutrient needs with documented 75-100% PO intake on regular diet. LB 06/06. No nutrition diagnosis at this time. Will continue to follow. Recommend: 1. continue regular diet 2. bowel care if s/s of constipation with no BM >2 days 3. weekly weights Addendum: 06/07/19 at [address] Amended: Links added.
[2019-06-07] MEDS ORDERED: PALI6TAB6 PO (14:39)
[2019-06-07] MEDS ORDERED: CITA-124 PO (14:39)
--- NOTE | 2019-06-07 15:34 | NUR ---
DISCHARGE PLANNING: Bed will be available Tuesday Addendum: 06/07/19 at 1535 by Tereza Cardona RN At [facility]
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
[2019-06-07] MEDS: PALIPERIDONE 3 MG TAB.ER.24 PO SCH (17:38)
[2019-06-07 20:40] VITALS: BP 120/67
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
[2019-06-08] MEDS: citalopram 20mg tablet PO SCH (07:49)
[2019-06-08] MEDS: lactobacillus rhamnosus 10,000 MMU CELLS/CAPSULE PO SCH ×2 (07:50→20:08)
[2019-06-08 08:00] VITALS: BP 99/63
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
[2019-06-08] MEDS: PALIPERIDONE 3 MG TAB.ER.24 PO SCH (17:29)
[2019-06-08 20:00] VITALS: BP 117/64
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
[2019-06-09] MEDS: lactobacillus rhamnosus 10,000 MMU CELLS/CAPSULE PO SCH ×2 (07:20→20:29)
[2019-06-09] MEDS: citalopram 20mg tablet PO SCH (07:20)
[2019-06-09 07:33] VITALS: BP 102/61
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
[2019-06-09] MEDS: PALIPERIDONE 3 MG TAB.ER.24 PO SCH (17:19)
[2019-06-09 19:57] VITALS: BP 115/69
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
[2019-06-10] MEDS: citalopram 20mg tablet PO SCH (07:32)
[2019-06-10] MEDS: lactobacillus rhamnosus 10,000 MMU CELLS/CAPSULE PO SCH ×2 (07:32→19:19)
[2019-06-10 08:35] VITALS: BP 99/60
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
[2019-06-10] MEDS: PALIPERIDONE 3 MG TAB.ER.24 PO SCH (17:43)
[2019-06-10 20:35] VITALS: BP 105/58
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
[2019-06-11 08:00] VITALS: BP 106/63
[2019-06-11] MEDS ORDERED: CITA-124 PO (08:38)
[2019-06-11] MEDS ORDERED: PALI6TAB6 PO (08:38)
[2019-06-11] MEDS: citalopram 20mg tablet PO SCH (08:39)
[2019-06-11] MEDS: lactobacillus rhamnosus 10,000 MMU CELLS/CAPSULE PO SCH (08:39)
--- NOTE | 2019-06-11 12:28 | NUR ---
Discharge: Pt dc'd to the [facility] at 1145 with [facility] driver. All pt belongings returned to pt including all valuables (computer and wallet) and pt agreed she received all her stuff and signed for it. Pt refused smoking cessation information and stated, "I don't smoke" Pt has bright affect and is looking forward to la. Pt denies S.I. D/C instructions, including f/u appt and medications explained to the pt, she verbalized understanding and she signed agreement. Pt sent with copies. Medications called in to [facility] and they will be delivering to [facility].
[2019-06-14] MEDS ORDERED: RISP2TAB3 PO (12:18)
== END 2019-06-11 11:42 | disposition short-term general hospital (02) | DRG 751 ==
LOC: ADULT MH 20:14
PROVIDERS: ADMIT Psychiatry & Neurology Psychiatry; ATTEND Psychiatry & Neurology Psychiatry
PROC: BW38YZZ Magnetic Resonance Imaging (MRI) of Head using Other Contrast (ICD-10-PCS; principal; 2019-06-05)
DX: F29 Unspecified psychosis not due to a substance or known physiological condition (principal); F32.9 Major depressive disorder, single episode, unspecified; F41.9 Anxiety disorder, unspecified; M81.0 Age-related osteoporosis without current pathological fracture; N39.0 Urinary tract infection, site not specified; G43.909 Migraine, unspecified, not intractable, without status migrainosus; M54.9 Dorsalgia, unspecified; Z59.0 Homelessness
CPT/HCPCS: 36415; 70551; 80061; 83036; 87081; 93005

== ENCOUNTER 2019-06-15 14:51 | Emergency (ER) | payer MEDICAID ==
[~2019-06-15] VITALS: Ht 170.2 cm; Wt 68.2 kg
[~2019-06-15 14:51] MED LIST changes: +CITA-124 PO; -LORA1TAB PO; +RISP2TAB3 PO
[2019-06-15 15:07] VITALS: BP 120/73
--- NOTE | 2019-06-15 15:49 | NUR ---
medication changed by dr motley today to help with pain.
== END 2019-06-15 16:08 | disposition home or self-care (01) ==
LOC: ER 14:51
DX: M62.838 Other muscle spasm (principal); T43.225A Adverse effect of selective serotonin reuptake inhibitors, initial encounter; F41.9 Anxiety disorder, unspecified; Z79.899 Other long term (current) drug therapy; Z60.2 Problems related to living alone; Y92.89 Other specified places as the place of occurrence of the external cause
CPT/HCPCS: 99281

== ENCOUNTER 2021-04-23 15:30 | Emergency (ER) | payer MEDICAID ==
[~2021-04-23] VITALS: Ht 170.2 cm; Wt 72.3 kg
[~2021-04-23 15:30] MED LIST changes: -RISP2TAB3 PO; +RISP2TAB85 PO
--- NOTE | 2021-04-23 16:02 | NUR ---
PT SEEN IN TRIAGE BY JEAN-PIERRE TO ATTEMPT TO HELP HER. SHE STATES SHE REFUSES TO STATE WHAT HER C/O IS. Addendum: 04/23/21 at 1641 by TERESA LUIS CARLOS Wong is aware of pt's current status.
[2021-04-23] MEDS ORDERED: PALIPERIDONE 3 MG TAB.ER.24 PO ONE (16:20)
[2021-04-23] MEDS ORDERED: LORazepam 1 MG tablet PO ONE (16:20)
--- NOTE | 2021-04-23 16:34 | NUR ---
Pt brought over from main ED and placed in bed 21. Pt was anxious and at first refused to answer any questions. Pt spoke with Dr. Jean Paul John via phone as he is her treating mental health provider. Per Dr. John pt is fixated that Celexa and Invega (which she has taken in the past) will have an immediate response to this panic episode. Pt was ordered Ativan 1mg and Invega 3mg once. Pt was given a blanket and cool wash cloth. Pt is visibly calming down. Pt states she was diaganosed with bipolar "some years ago." Pt is A&O x 4.
[2021-04-23 17:11] LABS: BASOPHILS # (AUTO) 0.1 X10'3 (0-0.2); BASOPHILS % (AUTO) 0.6 % (0-1); EOSINOPHILS % (AUTO) 0.1 % (0-6); HEMATOCRIT 36.5 % (35.0-45.0); HEMOGLOBIN 11.9 g/dl (12.0-16.0); LYMPHOCYTES # (AUTO) 0.5 X10'3 (1.1-4.8); LYMPHOCYTES % (AUTO) 4.6 % (21-51); MEAN CORPUSCULAR HEMOGLOBIN 28.7 PG (27.0-31.0); MEAN CORPUSCULAR HGB CONC 32.6 g/dL (33.0-36.5); MEAN CORPUSCULAR VOLUME 88.1 FL (78-98); MEAN PLATELET VOLUME 11.2 FL (7.4-10.4); MONOCYTES # (AUTO) 0.7 X10'3 (0-0.9); MONOCYTES % (AUTO) 6.7 % (2-12); NEUTROPHILS # (AUTO) 8.9 X10'3 (1.8-7.7); PLATELET COUNT 177 X10'3 (140-440); RED BLOOD COUNT 4.14 X10'6 (4.20-5.60); WHITE BLOOD COUNT 10.1 X10'3 (4.5-11.0)
[2021-04-23 17:16] LABS: ALANINE AMINOTRANSFERASE 17 U/L (12-78); ALBUMIN 4.1 G/DL (3.4-5.0); ALBUMIN/GLOBULIN RATIO 1.4 (1.1-1.5); ALKALINE PHOSPHATASE 62 IU/L (46-116); ANION GAP 11 (8-16); ASPARTATE AMINO TRANSFERASE 11 U/L (10-37); BILIRUBIN,TOTAL 0.7 MG/DL (0.1-1.0); BLOOD UREA NITROGEN 5 MG/DL (7-18); BUN/CREATININE RATIO 7.7 (6.6-38.0); CHLORIDE 108 MMOL/L (99-107); CREATININE 0.65 MG/DL (0.40-0.90); GLUCOSE 103 MG/DL (70-104); POTASSIUM 3.9 MMOL/L (3.5-5.1); SODIUM 142 MMOL/L (135-145); TOTAL CARBON DIOXIDE 23.4 MMOL/L (24-32); TOTAL PROTEIN 7.1 G/DL (6.4-8.2); eGFR > 90 ML/MIN
[2021-04-23 17:23] LABS: ETHANOL < 0.010 GM/DL (0.0-0.010)
--- NOTE | 2021-04-23 17:29 | NUR ---
Pt up to the restroom, obtained urine sample. Pt states "I am feeling better." Respirations even and unlabored. Pt's speech clear, audible. Pt's skin is a little flushed. Pt back in bed answering questions appropriatly. Has washcloth over eyes and is under covers.
[2021-04-23 17:33] LABS: URINE HCG NEGATIVE (NEG)
[2021-04-23 17:34] LABS: CLARITY,URINE SLIGHTLY CLOUDY (Clear); COLOR,URINE YELLOW (Yellow); GLUCOSE, URINE NEGATIVE (Neg); KETONES,URINE TRACE mg/dl (Neg); LEUKOCYTE ESTERASE ,URINE MODERATE (Neg); NITRITES, URINE NEGATIVE (Neg); OCCULT BLOOD,URINE NEGATIVE (Neg); PROTEIN,URINE NEGATIVE (Neg); UROBILINOGEN,URINE 0.2 E.U/dL (0.2-1.0)
[2021-04-23 17:48] LABS: URINE AMPHETAMINE SCREEN NEGATIVE (Neg); URINE BENZODIAZEPINES SCREEN NEGATIVE (Neg); URINE CANNABINOID SCREEN NEGATIVE (Neg); URINE COCAINE SCREEN NEGATIVE (Neg); URINE OPIATE SCREEN NEGATIVE (Neg); URINE PHENCYCLIDINE SCREEN NEGATIVE (Neg)
[2021-04-23 17:50] LABS: UA COLLECTION TYPE CLN CATCH MIDSTREAM
[2021-04-23 17:54] LABS: BACTERIA,URINE 4+ /HPF (Neg); MUCUS STRANDS MODERATE /LPF (Neg); RBC,URINE NONE SEEN /HPF (0-2); SQUAMOUS EPITHELIAL CELL,UR MANY /LPF (FEW); WBC CLUMPS,URINE MODERATE /HPF (NEGATIVE); WBC,URINE 20-30 /HPF (0-4)
[2021-04-23 17:59] LABS: URINE BARBITUATE SCREEN NEGATIVE (Neg); URINE METHADONE SCREEN NEGATIVE (Neg)
[2021-04-23] MEDS ORDERED: CITA20TA28 PO (18:04)
[2021-04-23] MEDS ORDERED: LORazepam 1 MG tablet PO PRN (18:15)
[2021-04-23] MEDS ORDERED: traZODone 50mg tablet PO ONE (18:15)
[2021-04-23] MEDS ORDERED: nitrofuran/nitrofuran macrocrysal 100 MG capsule PO SCH (20:00)
--- NOTE | 2021-04-23 20:00 | NUR ---
Pt sitting in bed. No complaints voiced or reported.
[2021-04-23] MEDS: PALIPERIDONE 3 MG TAB.ER.24 PO SCH ×2 (21:00→23:50)
--- NOTE | 2021-04-23 22:00 | NUR ---
Pt asleep with no complaints voiced or reported.
--- NOTE | 2021-04-24 00:05 | NUR ---
Pt asleep. + rise and fall of chest noted. No complaints voiced or reported.
[2021-04-24] MEDS ORDERED: PALI1.5T PO (05:10)
--- NOTE | 2021-04-24 05:12 | NUR ---
Pt jumped out of bed and stated "I'm getting out of here." Pt then went walking towards the doors leading off the unit. Pt followed by documenting RN while MAGDY called security. Pt finally met by other staff as well as security at the ambulance doors and escorted back to [facility] unit.
[2021-04-24] MEDS ORDERED: haloperidol lactate 5mg/ml inj IM ONE (05:30)
[2021-04-24 05:32] VITALS: BP 114/65
--- NOTE | 2021-04-24 05:40 | NUR ---
Pt up and pacing all around the unit. Pt with very pressured speech and very "aggresssive" with her body movements. Pt provided PRN, which she originally refused. Pt persuaded to take PRN. New order received for Haldol 5mg IM if pt refuses PRN ativan.
--- NOTE | 2021-04-24 07:16 | NUR ---
PT RESTING ON BACK EYES CLOSED RR EQUAL AND UNLABORED
--- NOTE | 2021-04-24 07:17 | NUR ---
PACKET FAXED TO [facility]
[2021-04-24] MEDS ORDERED: citalopram 20mg tablet PO SCH (08:00)
--- NOTE | 2021-04-24 08:54 | NUR ---
[facility] TO SEE PT
--- NOTE | 2021-04-24 10:09 | NUR ---
PT RETRUNED TO RESTING WITH EYES CLOSED AFTER EATING BREAKFAST. [facility] WILL RETURN TO EVAL
[2021-04-24] MEDS ORDERED: CEPH-585 PO (11:09)
--- NOTE | 2021-04-24 11:20 | NUR ---
PT READY FOR DC. I CALLED FOR TRANSPORT 20-30MIN
== END 2021-04-24 11:57 | disposition home or self-care (01) ==
LOC: ER 15:31
DX: N39.0 Urinary tract infection, site not specified (principal); Z20.822 Contact with and (suspected) exposure to COVID-19; R45.1 Restlessness and agitation; F41.9 Anxiety disorder, unspecified; R31.9 Hematuria, unspecified; R30.0 Dysuria; Z60.2 Problems related to living alone; Z88.8 Allergy status to other drugs, medicaments and biological substances; Z79.899 Other long term (current) drug therapy
CPT/HCPCS: 36415; 80053; 80305; 80320; 81001; 81025; 84443; 85025; 87635; 99284; C9803

== ENCOUNTER 2021-04-26 08:14 | Inpatient (IN) | payer MEDICAID ==
[~2021-04-26] VITALS: Ht 171.4 cm; Wt 74.9 kg
[~2021-04-26 08:14] MED LIST changes: +CEPH-585 PO; -CITA-124 PO; +CITA20TA28 PO; +PALI1.5T PO; -RISP2TAB85 PO
[2021-04-26] MEDS ORDERED: LORazepam 1 MG tablet PO ONE (08:25)
[2021-04-26 10:20] LABS: BASOPHILS # (AUTO) 0.1 X10'3 (0-0.2); BASOPHILS % (AUTO) 1.4 % (0-1); EOSINOPHILS # (AUTO) 0.1 X10'3 (0-0.9); EOSINOPHILS % (AUTO) 1.5 % (0-6); HEMATOCRIT 39.1 % (35.0-45.0); LYMPHOCYTES % (AUTO) 15.9 % (21-51); MEAN CORPUSCULAR HEMOGLOBIN 29.1 PG (27.0-31.0); MEAN CORPUSCULAR HGB CONC 33.2 g/dL (33.0-36.5); MEAN CORPUSCULAR VOLUME 87.8 FL (78-98); MEAN PLATELET VOLUME 11.2 FL (7.4-10.4); MONOCYTES # (AUTO) 0.6 X10'3 (0-0.9); MONOCYTES % (AUTO) 10.6 % (2-12); NEUTROPHILS # (AUTO) 4.3 X10'3 (1.8-7.7); NEUTROPHILS % (AUTO) 70.6 % (42-75); PLATELET COUNT 171 X10'3 (140-440); RED BLOOD COUNT 4.45 X10'6 (4.20-5.60); WHITE BLOOD COUNT 6.1 X10'3 (4.5-11.0)
[2021-04-26 10:23] LABS: ALANINE AMINOTRANSFERASE 17 U/L (12-78); ALBUMIN 4.2 G/DL (3.4-5.0); ALBUMIN/GLOBULIN RATIO 1.3 (1.1-1.5); ALKALINE PHOSPHATASE 56 IU/L (46-116); ANION GAP 13 (8-16); ASPARTATE AMINO TRANSFERASE 13 U/L (10-37); BILIRUBIN,TOTAL 1.2 MG/DL (0.1-1.0); BLOOD UREA NITROGEN 5 MG/DL (7-18); BUN/CREATININE RATIO 7.6 (6.6-38.0); CALCIUM 8.8 MG/DL (8.5-10.1); CHLORIDE 104 MMOL/L (99-107); CREATININE 0.66 MG/DL (0.40-0.90); GLUCOSE 81 MG/DL (70-104); POTASSIUM 3.8 MMOL/L (3.5-5.1); SODIUM 141 MMOL/L (135-145); TOTAL CARBON DIOXIDE 24.3 MMOL/L (24-32); TOTAL PROTEIN 7.5 G/DL (6.4-8.2); eGFR > 90 ML/MIN
[2021-04-26 10:35] LABS: ETHANOL < 0.010 GM/DL (0.0-0.010)
[2021-04-26 11:49] LABS: CLARITY,URINE CLEAR (Clear); COLOR,URINE YELLOW (Yellow); GLUCOSE, URINE NEGATIVE (Neg); KETONES,URINE >=80 mg/dl (Neg); LEUKOCYTE ESTERASE ,URINE TRACE (Neg); NITRITES, URINE NEGATIVE (Neg); OCCULT BLOOD,URINE NEGATIVE (Neg); PH,URINE 5.5 (4.8-8.0); PROTEIN,URINE NEGATIVE (Neg); UROBILINOGEN,URINE 0.2 E.U/dL (0.2-1.0)
[2021-04-26 11:52] LABS: URINE AMPHETAMINE SCREEN NEGATIVE (Neg); URINE BARBITUATE SCREEN NEGATIVE (Neg); URINE BENZODIAZEPINES SCREEN NEGATIVE (Neg); URINE CANNABINOID SCREEN NEGATIVE (Neg); URINE COCAINE SCREEN NEGATIVE (Neg); URINE METHADONE SCREEN NEGATIVE (Neg); URINE OPIATE SCREEN NEGATIVE (Neg); URINE PHENCYCLIDINE SCREEN NEGATIVE (Neg)
[2021-04-26 11:54] LABS: UA COLLECTION TYPE CLN CATCH MIDSTREAM
[2021-04-26 12:11] LABS: SQUAMOUS EPITHELIAL CELL,UR MODERATE /LPF (FEW)
[2021-04-26 12:12] LABS: BACTERIA,URINE FEW /HPF (Neg); RBC,URINE NONE SEEN /HPF (0-2); WBC,URINE 0-4 /HPF (0-4)
--- NOTE | 2021-04-26 12:31 | NUR ---
PACKET FAXED TO [facility]
--- NOTE | 2021-04-26 13:51 | NUR ---
SLEEPING COMFORTABLY IN ROOM
[2021-04-26] MEDS ORDERED: acetaminophen 325mg tablet PO PRN ×2 (23:25)
[2021-04-26] MEDS ORDERED: magnesium hydroxide 30ml (MOM) UD suspension PO PRN (23:25)
[2021-04-26] MEDS ORDERED: mag hydrox/Alum hydrox/simeth 30ml oral suspension PO PRN (23:25)
[2021-04-26] MEDS ORDERED: loperamide 2mg capsule PO PRN (23:25)
[2021-04-26] MEDS ORDERED: NICOTINE POLACRILEX 2 MG LOZENGE BC PRN (23:25)
[2021-04-27 00:08] VITALS: BP 119/70
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
[2021-04-27 07:43] LABS: CHOL/HDL RATIO 2.2 (0.00-4.99); CHOLESTEROL 112 MG/DL (0-200); HDL CHOLESTEROL 52 MG/DL (35-60); LDL CHOLESTEROL 44 MG/DL (50-100); TRIGLYCERIDES 39 MG/DL (20-135)
[2021-04-27] MEDS ORDERED: nicotine 21mg patch - 24 hr TD SCH (08:00)
[2021-04-27 08:08] VITALS: BP 126/76
[2021-04-27] MEDS: paliperidone 1.5mg ER tablet PO SCH (08:25)
[2021-04-27] MEDS: citalopram 20mg tablet PO SCH (08:26)
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
[2021-04-27 19:40] VITALS: BP 126/69
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
[2021-04-28] MEDS: citalopram 20mg tablet PO SCH (07:50)
[2021-04-28] MEDS: paliperidone 1.5mg ER tablet PO SCH (07:50)
[2021-04-28 08:53] VITALS: BP 107/65
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
[2021-04-28 20:23] VITALS: BP 125/81
[2021-04-29] MEDS: traZODone 50mg tablet PO PRN ×4 (02:03→20:55)
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
[2021-04-29] MEDS: LORazepam 1 MG tablet PO PRN (02:42)
[2021-04-29 08:00] VITALS: BP 115/69
[2021-04-29] MEDS: citalopram 20mg tablet PO SCH (09:16)
[2021-04-29] MEDS ORDERED: paliperidone 1.5mg ER tablet PO SCH (12:17)
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
--- NOTE | 2021-04-29 16:45 | NUR ---
5250 served for JOHNNY
[2021-04-29 19:35] VITALS: BP 111/71
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
[2021-04-30 07:30] VITALS: BP 102/63
[2021-04-30] MEDS: citalopram 20mg tablet PO SCH (07:47)
[2021-04-30] MEDS: PALIPERIDONE 3 MG TAB.ER.24 PO SCH (07:47)
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
--- NOTE | 2021-04-30 13:56 | NUR ---
Initial: Pt admit DX psychosis per EMR. PO 75-100% avg lactose-free diet meeting needs. LBM 04/27. No nutrition intervention at this time. Will continue to monitor. Rec: 1. continue lactose free diet 2. bowel care per rx 3. weekly wts Addendum: 04/30/21 at [address] Amended: Links added.
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
[2021-04-30 20:00] VITALS: BP 110/57
[2021-04-30] MEDS: traZODone 50mg tablet PO PRN (20:40)
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
[2021-05-01 07:24] VITALS: BP 95/66
[2021-05-01] MEDS: PALIPERIDONE 3 MG TAB.ER.24 PO SCH (08:00)
[2021-05-01] MEDS: citalopram 20mg tablet PO SCH (08:00)
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
[2021-05-01 19:00] VITALS: BP 101/63
[2021-05-01] MEDS: traZODone 50mg tablet PO PRN (20:20)
[2021-05-02] MEDS: LORazepam 1 MG tablet PO PRN (00:49)
[2021-05-02] MEDS: traZODone 50mg tablet PO PRN ×2 (00:49→21:17)
--- NOTE | 2021-05-02 00:50 | NUR ---
Patient awoke and came to nurses station. Patient wanted to talk to this singer songwriter in private. Patient tells this singer songwriter she is afraid of the charge nurse is out to get her, she is concerned about her possible demise. Patient looks down the hallway and sees signs on the celling that are not there. Patient looks extremely paranoid. This singer songwriter explained to the patient about paranoia and delusions. The patient does exhibit some understanding of what this singer songwriter is telling her. The patient was given Ativan and a second Trazadone. The patient is reoriented to reality. She is going to attempt to sleep. The patient is advised to come and see this singer songwriter if fears and inability to sleep do not resolve. Frequent rounding will be continued for patient safety.
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
--- NOTE | 2021-05-02 03:18 | NUR ---
Patient came to nursing station, she states she can feel something cutting around and touching her legs. The patient is advised that these are hallucinations are not real. The patient was advised this information will be passed on to the medical provider in the morning for consideration of possible medication adjustment. The patient returns to bed after reassurance.
[2021-05-02 08:01] VITALS: BP 102/58
[2021-05-02] MEDS: citalopram 20mg tablet PO SCH (08:26)
[2021-05-02] MEDS: PALIPERIDONE 3 MG TAB.ER.24 PO SCH (08:26)
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
[2021-05-02 19:00] VITALS: BP 105/61
[2021-05-03] MEDS: traZODone 50mg tablet PO PRN ×2 (00:15→21:06)
--- NOTE | 2021-05-03 00:15 | NUR ---
Patient awoke, described having strange dreams, asked for and was given a second Trazadone for sleep.
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
[2021-05-03] MEDS: citalopram 20mg tablet PO SCH (07:58)
[2021-05-03] MEDS: PALIPERIDONE 3 MG TAB.ER.24 PO SCH (07:58)
[2021-05-03 08:00] VITALS: BP 108/62
--- NOTE | 2021-05-03 16:42 | NUR ---
Nursing Progress Note: Legal hold: 5250 Client on voluntary/involuntary status for GD Report received from nurse with use of TATI Reinoso RN Why are they here: Client is a patient of Dr Brito and reports not taking her medications. She has been experiencing significant changes in mood and behavior. Client has a history of visual hallucinations (ex: seeing snakes trying to attack her). Client is unable to function and described having a "nervous breakdown". She presented to the ED with anxiety and paranoia. Hx of childhood trauma. Assessment: What happened this shift: After breakfast patient asked to discuss her food. Tearful and appeared upset. Pt states, I know someone is tampering with my food and Im tired of it. I dont feel safe here and I want to be transferred to the [facility]. Pt states she got 2 piles of eggs. One was good and one was bad. Pt reassured that no food tampering was taking place. Pt verbalizes that paranoia and delusion have been an issue and her food issue may be attributed to that. Also states she would like to be put back on a lactose diet as she is not really allergic but prefers not to consume milk products by themselves. New order to change diet back to Regular. Pt states she slept well until tactile hallucinations woke her up. She then took trazadone which she stated was effective for sleep. Patient eats in community room with her peers. Denies any SI/ HI. She states she will not return to her previous place of residence, she does not feel safe there. Patient went to a motel prior to admission. States upon discharge she would like to go to the [facility]. In reference to her legal hold pt states she is a big girl, and can take her medications independently. Pt previously had gone off of her meds but insists if discharged she will take her medications as prescribed. Also states, I dont really like taking medications. In late morning pt stated she was worried about her heart. Stated she was feeling pressure in her left anterior shoulder and had numbness in her left hand. Stated this has happened before with a pinched nerve. Vital signs check and WNL. Pt stated that put her mind at ease. PRN Tylenol effective for headache. S/I, H/I: Denies A/VH: denies, describes tactile hallucinations Sleep: See sleep assessment ADL's: Independent. Group attendance: N/A Were meds taken: Yes Any med S/E: None noted Mental Status Exam Appearance: Neat and clean, dressed appropriately for unit Eye contact: Direct Behavior: Cooperative but socially withdrawn and isolates to her room most of the day. Speech: WNL Mood: Depressed and anxious. Affect: Flat. Thought process: Linear. Thought Content: Focused on discharge and somatic complaints. Cognition: A/O x4 Insight: Poor Judgment: Poor Interventions PRN's used: None. Therapeutic interventions Active listening, 1:1 Assessment, safe and therapeutic environment, q 15 safety rounds. Restraints/seclusion/emergency medication: Justification of Continued Inpatient Treatment: Patient is her on a 5150 due to GD. Pt.s hold upheld on 04/30
[2021-05-03 19:00] VITALS: BP 117/63
--- NOTE | 2021-05-04 04:28 | NUR ---
Nursing Progress Note: Legal hold: 5250 Client on voluntary/involuntary status for GD Report received from NOEMI Polo with use of SBAR. Why are they here: Client is a patient of Dr Brito and reports not taking her medications. She has been experiencing significant changes in mood and behavior. Client has a history of visual hallucinations (ex: seeing snakes trying to attack her). Client is unable to function and described having a "nervous breakdown". She presented to the ED with anxiety and paranoia. Hx of childhood trauma. Assessment: What happened this shift: Patient is out of her room wearing green scrubs. She presents as somewhat social. Patient 1:1 Interview completed in the community room. The patient is well oriented, W/D, she has good color. The patient converses well, on occasion the patient presents as delusional. The patient exhibits understanding when this poem writer explains that she may be having some delusional thoughts and auditory hallucinations. Patient is willing to except that there is something wrong with her thought process at times. This patient is needy and requires some positive reassurance. The patient smiles easily. The patient tells this poem writer that she is looking forward to a change in her living situation following discharge from [facility]. Patient is out of bed on three occasions during the night. She tells this poem writer she is experiencing dome difficulty in sleep. Patient does not want a second Trazadone. The patient is comforted with light conversation, reassurance that she is in a safe place, and the issuance of a warm blanket. Patient denies S/I, H/I, she does not endorse any hallucinations this shift. The patient is medication compliant. S/I, H/I: Denies. A/VH: Denies this shift. Sleep: Will tally aat 0500 hours. ADL's: Independent. Group attendance: No group on overnight cashier. Were meds taken: Yes, medication compliant. Any med S/E: None noted. Mental Status Exam Appearance: WNL. Eye contact: Direct. Behavior: Cooperative, mild social isolation. Speech: Normal rate, rhythm, and tone. Mood: Mild depression and anxiety. Affect: Flat. Thought process: Linear. Thought Content: Focused on discharge and somatic complaints. Some church fixation. Cognition: A/O x4. Insight: Fair. Judgment: Fair. Interventions PRN's used: Trazadone. Therapeutic interventions Active listening, 1:1 Assessment, safe and therapeutic environment, q 15 safety rounds. Restraints/seclusion/emergency medication: Justification of Continued Inpatient Treatment: Patient is her on a 5150 due to GD. Pt.s hold upheld on 04/30
[2021-05-04] MEDS: citalopram 20mg tablet PO SCH (07:33)
[2021-05-04] MEDS: PALIPERIDONE 3 MG TAB.ER.24 PO SCH (07:33)
[2021-05-04 08:00] VITALS: BP 109/58
[2021-05-04 09:46] VITALS: BP 109/58
--- NOTE | 2021-05-04 17:14 | NUR ---
Nursing Progress Note: Legal hold: 5250 Client on voluntary/involuntary status for GD. Report received from use of SBAR and Nurse Herlinda Banda RN Why they are here: Client is a patient of Dr Brito and reports not taking her medications. She has been experiencing significant changes in mood and behavior. Client has a history of visual hallucinations (ex: seeing snakes trying to attack her). Client is unable to function and described having a "nervous breakdown". She presented to the ED with anxiety and paranoia. Hx of childhood trauma. Assessment: Pt. received sleeping in her bedroom. Pt. awoke to receive her medication. Pt observed smiling and when assessed at three bedside found to be delusional AEB reported statements of hearing voices, pt. reluctant to convey detailed information about the voices. Pt. reports feeling safe at this time. Denies any SI/ HI Shortly after med pass pt. OOB combing her hair. Pt compliant to be weighed currently 72.1kg. Pt. presents with fixed delusional AEB her statement, I cant trust the water and the chemicals are effecting me so Im unable to take a shower racebook writer attempted to redirect pt. unsuccessfully. Pt. ate lunch in the community dining room. Rested in her room intermittently this afternoon. Pt. observed ambulating in the leahy smiling with green scrubs hair combed nicely. S/I, H/I: Denies A/VH: Hearing voices, denies visual disturbances Sleep: 8.5 per NOC nurse, intermittent napping this shift ADL's: Independent Group attendance: N/A Were meds taken: Yes Any med S/E: None noted Mental Status Exam Appearance: Neat and clean, dressed appropriately for unit Eye contact: Direct Behavior: Cooperative Speech: WNL Mood: Anxious. Affect: Flat. Addendum: 05/04/21 at 1717 by Breonna Amaro RN Thought process: Paranoid Thought Content: Focused on discharge and somatic complaints. Cognition: A/O x4 Insight: Poor Judgment: Poor PRN's used: None. Therapeutic interventions: Motorcycle Sales Associate continues to provide a safe and supportive environment, safety precautions in place, clear and simple instructions continue , provided direction and assistance with ADLs as needed, redirection and boundaries continue, monitored behaviors and need for intervention, and maintained Q 15min safety checks. Restraints/seclusion/emergency medication: None Justification of Continued Inpatient Treatment: Patient is her on a 5150 due to GD. Pt.s hold upheld on 04/30
[2021-05-04 20:05] VITALS: BP 121/82
[2021-05-04] MEDS: traZODone 50mg tablet PO PRN (21:25)
--- NOTE | 2021-05-04 23:23 | NUR ---
Nursing Progress Note: Legal hold: 5250 Client on voluntary/involuntary status for GD Report received from NOEMI Simental with use of SBAR. Why are they here: Client is a patient of Dr Brito and reports not taking her medications. She has been experiencing significant changes in mood and behavior. Client has a history of visual hallucinations (ex: seeing snakes trying to attack her). Client is unable to function and described having a "nervous breakdown". She presented to the ED with anxiety and paranoia. Hx of childhood trauma. Assessment: What happened this shift: Pt was polite, cooperative and in pleasant mood, pts vitals were normal, pt stated they were not in pain or anxious and pt felt safe. Pt did experience delusions of someone tapping on her head, pt accepted that she was having a delusion and went back to bed, pt spent majority of shift in bed, pt complained of having broken sleep last night and was given a prn trazodone pt hopes for better sleep tonight. pt did start menstruating and was given supplies. S/I, H/I: Denies. A/VH: Denies this shift. Sleep: Will tally at 0500 hours. ADL's: Independent. Group attendance: No group on night time nanny. Were meds taken: Yes, medication compliant. Any med S/E: None noted. Mental Status Exam Appearance: WNL. Eye contact: Direct. Behavior: Cooperative, social Speech: Normal rate, rhythm, and tone. Mood: pleasant and social Affect: congruent Thought process: Linear. Thought Content: Focused on discharge and somatic complaints. Some hindu fixation. Cognition: A/O x4. Insight: Fair. Judgment: Fair. Interventions PRN's used: Trazadone. Therapeutic interventions Active listening, 1:1 Assessment, safe and therapeutic environment, q 15 safety rounds. Restraints/seclusion/emergency medication: Justification of Continued Inpatient Treatment: Patient is her on a 5150 due to GD. Pt.s hold upheld on 04/30
[2021-05-05] MEDS: LORazepam 1 MG tablet PO PRN (01:31)
[2021-05-05] MEDS: traZODone 50mg tablet PO PRN ×2 (02:47→21:27)
--- NOTE | 2021-05-05 04:13 | NUR ---
What happened on during shift: @ 1:30 Pt became agitated and aggressive, pt kept asking for medications and then would refuse them once pulled. Pt stated we were giving her the wrong medications and meds she is allergic too. pt was repetitive in these statements. Pt refused to go back into room, pt finally went into room only to bring garbage can out of room into hallway filled with used sanitary products. Pt then came out again this time stating that housekeeping is sabotaging her room and trying to poisin her by removing all the air vents so smoke can come in. Nurse tried informing her that she was having a delusion. Pt then went into room and started breathing loudly and dramatically as if suffocating from smoke. After talking to pt again pt finally calms down, pt comes out of room again asking for medications. Pt finally takes medications and goes to sleep.
[2021-05-05] MEDS: PALIPERIDONE 3 MG TAB.ER.24 PO SCH (07:21)
[2021-05-05] MEDS: citalopram 20mg tablet PO SCH (07:21)
[2021-05-05 08:00] VITALS: BP 105/63
--- NOTE | 2021-05-05 15:00 | NUR ---
Met with Basia with [facility]. She was laying in her bed and began crying loudly. She stated she wants to leave but does not know where she would go. She requested her own room due to being triggered on the unit. When asked if something had happened with her roommate (who had been sleeping much of the day) she did not answer. She became very upset when she heard another patient fall in the hallway, "oh my gosh, she just " and continued to cry. worked with her to slow down her breathing to help her calm down. She requested to hold chief writer's hand and said that helped her. Offered [facility] upon discharge and she declined. She calmed down and said she feels like she just needs to rest. [facility] offered her a PRN for anxiety which she declined. also offered her coloring supplies or additional activities to utilize as coping skills and she declined. She asked chief writer to check on her in 30 min. Costume Specialist did check on her and she was napping. ANGEL Rehman
[2021-05-05] MEDS ORDERED: LORazepam 1 MG tablet PO PRN (15:25)
--- NOTE | 2021-05-05 17:00 | NUR ---
Nursing Progress Note: Legal hold: 5250 Client on voluntary/involuntary status for GD. Report received from use of SBAR and Nurse NOEMI Cano Why they are here: Client is a patient of Dr Brito and reports not taking her medications. She has been experiencing significant changes in mood and behavior. Client has a history of visual hallucinations (ex: seeing snakes trying to attack her). Client is unable to function and described having a "nervous breakdown". She presented to the ED with anxiety and paranoia. Hx of childhood trauma. Assessment: What happened this shift: Patient sleeping in her room at change of shift. Pt. awoke to receive her medication. Bedside assessment completed denies S/I, H/I. Later pt. approached aligner typewriter in the leahy and appeared to be delusional AEB statement of radiation is going through my body and effecting my bones. Write attempted to reassure pt. she was in safe place and is being taken care of; ineffective pt. remains fixed delusional. Pt. ate lunch in the common dining room with peers. Later pt. alerted staff she was having a panic attack. Scratch Polisher assessed pt. observed her crying and c/o anxiety. VSS, assured pt. she is safe here. Discussed coping skills and relaxation techniques; effective, PRN options available; pt. refused. Attempted to rechecked pt. PA present at the bedside. Currently resting in room. S/I, H/I: Denies A/VH: Denies Sleep: 6hrs per NOC nurse, intermittent napping this shift ADL's: Independent Group attendance: N/A Were meds taken: Yes Any med S/E: None noted Mental Status Exam Appearance: Neat and clean, dressed appropriately for unit Eye contact: Direct Behavior: Anxious, Cooperative Speech: WNL Mood: Paranoid. Affect: Anxious Thought process: Delusional Thought Content: Focused on discharge and somatic complaints. Cognition: A/O x4 Insight: Poor Judgment: Poor PRN's used: None. Therapeutic interventions: Scratch Polisher continues to provide a safe and supportive environment, safety precautions in place, clear and simple instructions continue , provided direction and assistance with ADLs as needed, redirection and boundaries continue, monitored behaviors and need for intervention, and maintained Q 15min safety checks. Restraints/seclusion/emergency medication: None Justification of Continued Inpatient Treatment: Patient is her on a 5150 due to GD. Pt.s hold upheld on 04/30
[2021-05-05 19:26] VITALS: BP 100/69
--- NOTE | 2021-05-06 03:14 | NUR ---
Nursing Progress Note: Legal hold: 5250 Client on voluntary/involuntary status for GD Report received from NOEMI Simental with use of SBAR. Why are they here: Client is a patient of Dr Brito and reports not taking her medications. She has been experiencing significant changes in mood and behavior. Client has a history of visual hallucinations (ex: seeing snakes trying to attack her). Client is unable to function and described having a "nervous breakdown". She presented to the ED with anxiety and paranoia. Hx of childhood trauma. Assessment: What happened this shift: Pt was cooperative and pleasant. Talked to pt about last night and ways to prevent a repeat . Pt says she is leaving that up to us, but won't promise to take medication even if needed. Pt has admitted to having delusions. Pt is social and spending time in activities room playing cards with other pts. Pt allowed vitals to be taken by tech, pts vitals were normal. Pt admits her menstruation is causing her to have paranoid delusions that some thing foreign is trying to come out of her. Pt did accept PRN Trazodone and slept rest of shift. Pt observed sleeping without difficulty. S/I, H/I: Denies. A/VH: Denies this shift. Sleep: Will tally at 0500 hours. ADL's: Independent. Group attendance: No group on night guard. Were meds taken: Yes, medication compliant. Any med S/E: None noted. Mental Status Exam Appearance: WNL. Eye contact: Direct. Behavior: Cooperative, social Speech: Normal rate, rhythm, and tone. Mood: pleasant and social Affect: congruent Thought process: Linear and paranoid delusions Thought Content: Focused on discharge and somatic complaints. Cognition: A/O x4. Insight: Fair. Judgment: Fair. Interventions PRN's used: Trazodone. Therapeutic interventions Active listening, 1:1 Assessment, safe and therapeutic environment, q 15 safety rounds. Restraints/seclusion/emergency medication: Justification of Continued Inpatient Treatment: Patient is her on a 5150 due to GD. Pt.s hold upheld on 04/30
--- NOTE | 2021-05-06 05:11 | NUR ---
Note Update: Patient states having bad dreams and inclusive thoughts. Delusions of things trying to harm her. Patient got up multiple times each time talking about another random topic. Patient having scattered thought process.
[2021-05-06] MEDS: PALIPERIDONE 3 MG TAB.ER.24 PO SCH (07:20)
[2021-05-06] MEDS: citalopram 20mg tablet PO SCH (07:20)
[2021-05-06 08:00] VITALS: BP 105/65
--- NOTE | 2021-05-06 11:23 | NUR ---
Initial: Pt admit DX psychosis per EMR. PO 50-100% avg Regular diet meeting needs. Pt compliant w/ meds. LBM 04/27. No nutrition intervention at this time. Will continue to monitor. Rec: 1. continue regular diet as tolerated 2. bowel care per rx 3. weekly wts Addendum: 05/06/21 at [address] Amended: Links added.
--- NOTE | 2021-05-06 17:50 | NUR ---
Nursing Progress Note: Legal hold: 5250 Client on voluntary/involuntary status for GD. Report received from use of SBAR and Nurse NOEMI Cano Why they are here: Client is a patient of Dr Brito and reports not taking her medications. She has been experiencing significant changes in mood and behavior. Client has a history of visual hallucinations (ex: seeing snakes trying to attack her). Client is unable to function and described having a "nervous breakdown". She presented to the ED with anxiety and paranoia. Hx of childhood trauma. Assessment: What happened this shift: Pt. sleeping in her room at change of shift. Pt. awoke to receive her medication. Bedside assessment completed she presents with delusions AEB a statement of hearing voices, denies S/I, H/I. Pt. did eat breakfast in the dining room with peers. Later pt. was observed in a common area coloring a picture. Pt. ate lunch in the dining room and was observed interacting appropriately. Pt. resting in her room before dinner. S/I, H/I: Denies A/VH: Auditory Sleep: 7.5hrs per NOC nurse, intermittent napping this shift ADL's: Independent Group attendance: N/A Were meds taken: Yes Any med S/E: None noted Mental Status Exam Appearance: Neat and clean, dressed in green unit scrubs Eye contact: Direct Behavior: Anxious, Cooperative Speech: WNL Mood: Paranoid. Affect: Anxious Thought process: Delusional Thought Content: Focused on discharge. Cognition: A/O x4 Insight: Poor Judgment: Poor PRN's used: None Therapeutic interventions: Home Appraiser continues to provide a safe and supportive environment, safety precautions in place, clear and simple instructions continue , provided direction and assistance with ADLs as needed, redirection and boundaries continue, monitored behaviors and need for intervention, and maintained Q 15min safety checks. Restraints/seclusion/emergency medication: None Justification of Continued Inpatient Treatment: Patient is her on a 5150 due to GD. Pt.s hold upheld on 04/30
[2021-05-06] MEDS ORDERED: hydrOXYzine 25 MG tablet PO ONE (20:19)
[2021-05-06 20:36] VITALS: BP 101/48
[2021-05-06] MEDS: traZODone 50mg tablet PO PRN (21:01)
--- NOTE | 2021-05-07 04:45 | NUR ---
Nursing Progress Note: Legal hold: 5250 Client on voluntary/involuntary status for GD Report received from NOEMI Simental with use of SBAR. Why are they here: Client is a patient of Dr Brito and reports not taking her medications. She has been experiencing significant changes in mood and behavior. Client has a history of visual hallucinations (ex: seeing snakes trying to attack her). Client is unable to function and described having a "nervous breakdown". She presented to the ED with anxiety and paranoia. Hx of childhood trauma. Assessment: What happened this shift: Patient was calm and cooperative during shift, Patient took all of her medication including PRN Trazodone. Patient had 4hrs of restful sleep due to new medication until 1:40 when patient woke up to nightmares of having her legs and head cut off as well as feeling like someone was preforming surgery on the left side of her face. Patient continued to have paranoid delusion after waking up. Patient eventually realized she was having a delusion. Patient then began to complain about new medication Atarax due to the fact it made her so sleepy she wasn't able to react to her delusions. Patient states the medication is making her sleep through things that before would have woken her up, making her feel unsafe. Patient complains of not feeling safe in her room since she can not react to delusions. Nurse tries to explain to patient that the medication is doing it job which is helping her to relax and sleep and not react to her delusions. Due to its effect on patient, patient expresses concern about taking medication again tomorrow night even though it did help her sleep longer then usual. S/I, H/I: Denies. A/VH: Denies this shift. Sleep: Will tally at 0500 hours. ADL's: Independent. Group attendance: No group on assistant shift supervisor. Were meds taken: Yes, medication compliant. Any med S/E: None noted. Mental Status Exam Appearance: WNL. Eye contact: Direct. Behavior: Cooperative, social Speech: Normal rate, rhythm, and tone. Mood: pleasant and social Affect: congruent Thought process: Linear and paranoid delusions Thought Content: Focused on discharge and somatic complaints. Cognition: A/O x4. Insight: Fair. Judgment: Fair. Interventions PRN's used: Trazodone. Therapeutic interventions Active listening, 1:1 Assessment, safe and therapeutic environment, q 15 safety rounds. Restraints/seclusion/emergency medication: Justification of Continued Inpatient Treatment: Patient is her on a 5150 due to GD. Pt.s hold upheld on 04/30
[2021-05-07 07:35] VITALS: BP 92/52
[2021-05-07] MEDS: PALIPERIDONE 3 MG TAB.ER.24 PO SCH (08:38)
[2021-05-07] MEDS: citalopram 20mg tablet PO SCH (08:38)
[2021-05-07 10:49] VITALS: BP 99/62
--- NOTE | 2021-05-07 14:32 | NUR ---
Nursing Progress Note: Legal hold: 5250 Client on voluntary/involuntary status for GD Report received from NOEMI Cano. Why are they here: Client is a patient of Dr Brito and reports not taking her medications. She has been experiencing significant changes in mood and behavior. Client has a history of visual hallucinations (ex: seeing snakes trying to attack her). Client is unable to function and described having a "nervous breakdown". She presented to the ED with anxiety and paranoia. Hx of childhood trauma. Assessment: What happened this shift: Pt. has been cooperative and paranoid today. States she is hearing auditory hallucinations which are conversations between her father and a doctor regarding making health decisions for her. She says she has "intrusive feelings" and that she does not feel "safe in that bed". States that she did not sleep well and that she had dreams that the bottom of her left foot was surgical removed, her brain was removed, and that something was wrong with the left side of her face. States that things donot feel like dreams but that they are very real feeling. She has a flat affect and does not blink often when speaking to you, however does make good eye contact. refused first lunch tray stating "my food has been tainted". pt. unable to be reassured until a second tray of food was ordered from kitchen. Pt. then ate a healthy amount. Pt. states she wants to go home, but does not feel safe at home either. S/I, H/I: Denies. A/VH: AH Sleep: 3h ADL's: Independent. Group attendance: eats meals with peers but otherwise in her room Were meds taken: yes Any med S/E: pt. states "tiredness" from atarax she took last night. Mental Status Exam Appearance: disheveled Eye contact: Direct, stare Behavior: Cooperative, quiet Speech: Normal rate, rhythm, and tone. Mood: pleasant Affect: flat Thought process: Linear and paranoid delusions Thought Content: Focused on discharge and somatic complaints. Cognition: A/O x4. Insight: Fair. Judgment: Fair. Interventions PRN's used: Atarax Therapeutic interventions Active listening, 1:1 Assessment, safe and therapeutic environment, q 15 safety rounds. Justification of Continued Inpatient Treatment: Patient is here on a 5150 due to GD. Pt.s hold upheld on 04/30
--- NOTE | 2021-05-07 17:40 | NUR ---
Pt. in room resting with lights off rise and fall of chest noted, responsive to verbal stimuli. Denies any anxiety at this time. No requests or needs.
[2021-05-07 19:19] VITALS: BP 95/56
[2021-05-07] MEDS: hydrOXYzine 25 MG tablet PO PRN (21:16)
[2021-05-07] MEDS: traZODone 50mg tablet PO PRN (21:16)
[2021-05-08] MEDS: traZODone 50mg tablet PO PRN ×2 (01:45→21:18)
--- NOTE | 2021-05-08 02:02 | NUR ---
Nursing Progress Note: Legal hold: 5250 Client on involuntary status for GD Report received from NOEMI Le with use of SBAR Why are they here: Client is a patient of Dr Brito and reports not taking her medications. She has been experiencing significant changes in mood and behavior. Client has a history of visual hallucinations (ex: seeing snakes trying to attack her). Client is unable to function and described having a "nervous breakdown". She presented to the ED with anxiety and paranoia. Hx of childhood trauma. Assessment What happened this shift: Patient sitting in bedside chair and reading a book at the beginning of shift. Pleasant and cooperative with care. PRNs Trazodone x2, Atarax and MOM provided this shift. Patient denies SI, HI, A/VH; does not appear to be responding to IS and no delusional thought content expressed this shift. Patient participated in HS snack and social with peers prior to bed; patient awoke once and did not appear anxious and no reports of nightmares. Patient provided repeat Trazodone and immediately laid back down and does not appear to be having difficulty. S/I, H/I: Denies A/VH: Denies Sleep: Refer to sleep assessment ADL's: Independent Group attendance: Independent Were meds taken: Yes Any med S/E: Reports feeling fatigued Mental Status Exam Appearance: Neat and appropriately dressed in green unit attire Eye contact: Good Behavior: Pleasant and cooperative, reading, social Speech: Clear, soft, regular rate/rhythm Mood: Euthymic Affect: Congruent to mood Thought process: Linear Thought Content: Meeting needs and discharge Cognition: A/O x4 Insight: Fair Judgment: Fair Interventions PRN's used: Trazodone x2 and Atarax Therapeutic interventions Active listening, 1:1 Assessment, safe and therapeutic environment, q 15 safety rounds. Justification of Continued Inpatient Treatment: Patient is here on a 5150 due to GD. Pt.s hold upheld on 04/30
[2021-05-08] MEDS ORDERED: tuberculin, purif. prot. deriv. 5 units/0.1ml ID ONE (07:35)
[2021-05-08 07:52] VITALS: BP 97/54
[2021-05-08] MEDS: PALIPERIDONE 3 MG TAB.ER.24 PO SCH (08:00)
[2021-05-08] MEDS: citalopram 20mg tablet PO SCH (08:00)
--- NOTE | 2021-05-08 08:32 | NUR ---
[facility] Faxed documents to [facility]. Spoke to Balaji who reported Basia has been accepted and can go to [facility] on Tuesday. Requested PPD. She will need a Covid test done on Tuesday please. Meds will need to get sent to [facility] today for delivery. ANGEL Rehman
[2021-05-08] MEDS ORDERED: NICO-668 BC (11:09)
[2021-05-08] MEDS ORDERED: PALI6TAB6 PO (11:09)
[2021-05-08] MEDS ORDERED: CITA20TA28 PO (11:09)
[2021-05-08] MEDS ORDERED: TRAZ-251 PO (11:09)
[2021-05-08] MEDS ORDERED: HYDR-3686 PO (11:09)
--- NOTE | 2021-05-08 14:14 | NUR ---
Nursing Progress Note: Legal hold: 5250 Client on involuntary status for GD Report received from Cher MERINO Why are they here: Client is a patient of Dr Brito and reports not taking her medications. She has been experiencing significant changes in mood and behavior. Client has a history of visual hallucinations (ex: seeing snakes trying to attack her). Client is unable to function and described having a "nervous breakdown". She presented to the ED with anxiety and paranoia. Hx of childhood trauma. Assessment: What happened this shift: Pt was up for breakfast and ate around 50%. Pt ate 100% of lunch. Pt reports that she still has "whispers of intrusive thoughts." Pt clarified, "They're not my thoughts, it's like someone is having a conversation about me but I can't make out what they're saying." Pt denied SI/HI/VH. Pt indicated that she was disappointed that she has to stay here until Tuesday. Discussed how this is her choice as she does not wish to return home and the [facility] will not have a bed available for her until Tuesday. Pt states she has been to the [facility] before. Pt was given a PPD in her left forearm today. Pt will need to have a rapid Covid test done on Tuesday. S/I, H/I: Pt denies. A/VH: +AH, "whispers" Sleep: Pt slept 7.75 hours last night per noc shift report, pt napped after breakfast. ADL's: Independent. Group attendance: N/A Were meds taken: Yes Any med S/E: None noted or reported. Mental Status Exam Appearance: Woman with medium length brown hair cut in a dario style, dressed in green unit scrubs. Eye contact: Good Behavior: Pleasant, cooperative, paces the unit, mostly isolative to self. Speech: Clear, soft, normal rate & rhythm. Mood: "disappointed" Affect: Appropriate to situation. Thought process: Linear Thought Content: Focused on discharge. Cognition: A/O x4. Insight: Fair. Judgment: Fair. Interventions PRN's used: None Therapeutic interventions Active listening, 1:1 Assessment, therapeutic conversation, active listening, medication administration/education/monitoring, provided encouragement and positive reinforcement, Q 15 minute safety checks. Justification of Continued Inpatient Treatment: Pt needed crisis interruption with medication adjustment and monitoring in a safe and therapeutic environment. Pt does not feel safe returning home. She has been accepted at the [facility], her PPD will be read Tuesday, she needs a rapid Covid test on Tuesday, plan is for her to discharge on Tuesday. Meds will be delivered from [facility].
[2021-05-08 19:39] VITALS: BP 101/66
--- NOTE | 2021-05-09 03:45 | NUR ---
Nursing Progress Note: Legal hold: 5250 Client on involuntary status for GD Report received from NOEMI Le with use of SBAR Why are they here: Client is a patient of Dr Brito and reports not taking her medications. She has been experiencing significant changes in mood and behavior. Client has a history of visual hallucinations (ex: seeing snakes trying to attack her). Client is unable to function and described having a "nervous breakdown". She presented to the ED with anxiety and paranoia. Hx of childhood trauma. Assessment What happened this shift: Patient laying in bed at the beginning of shift. Pleasant and cooperative with care; PRN Trazodone provided with positive effect. Patient denies SI, HI, A/VH; does not appear to be responding to IS and no delusional thought content expressed this shift. Patient did not appear to be anxious or paranoid this shift. She got up to eat HS snack in the community room and observed watching TV prior to returning to bed. She is observed sleeping and does not appear to be having difficulty; no disturbances or nightmares reported this shift. S/I, H/I: Denies A/VH: Denies Sleep: Refer to sleep assessment ADL's: Independent Group attendance: Independent Were meds taken: Yes Any med S/E: Reports feeling fatigued Mental Status Exam Appearance: Neat and appropriately dressed in green unit attire Eye contact: Good Behavior: Pleasant and cooperative, social Speech: Clear, soft, regular rate/rhythm Mood: Euthymic Affect: Congruent to mood Thought process: Linear Thought Content: Meeting needs and discharge Cognition: A/O x4 Insight: Fair Judgment: Fair Interventions PRN's used: Trazodone Therapeutic interventions Active listening, 1:1 Assessment, safe and therapeutic environment, q 15 safety rounds. Justification of Continued Inpatient Treatment: Patient is here on a 5150 due to GD. Pt.s hold upheld on 04/30
[2021-05-09 08:00] VITALS: BP 95/56
[2021-05-09] MEDS: PALIPERIDONE 3 MG TAB.ER.24 PO SCH (08:03)
[2021-05-09] MEDS: citalopram 20mg tablet PO SCH (08:03)
--- NOTE | 2021-05-09 14:44 | NUR ---
Nursing Progress Note: Legal hold: 5250 Client on involuntary status for GD Report received from Herlinda Reinoso RN. Why are they here: Client is a patient of Dr Brito and reports not taking her medications. She has been experiencing significant changes in mood and behavior. Client has a history of visual hallucinations (ex: seeing snakes trying to attack her). Client is unable to function and described having a "nervous breakdown". She presented to the ED with anxiety and paranoia. Hx of childhood trauma. Assessment: What happened this shift: Pt was up for breakfast. Pt was pleasant and cooperative with care and meds. Pt reported that she heard some "whispers" in the morning but then they went away throughout the day. Asked pt if she felt that her symptoms may be diminishing because the medications are helping. Pt looked skeptical then replied that it could also be because of decreased stress as she has been feeling really relaxed here. Discussed how once discharged, life stressors would return and the importance of continuing to take the meds as prescribed and follow up with her outpatient provider. Pt indicated that she had worked with her provider on weaning off her meds before and was only on Celexa but then stopped taking that too. Discussed how Celexa can help with anxiety and depression but not with voices. S/I, H/I: Pt denies. A/VH: Pt reported some "whispers" in the morning but they had stopped at least a couple of hours before lunch. Sleep: Pt slept 6.5 hours last night per noc shift report. ADL's: Independent. Group attendance: N/A Were meds taken: Yes Any med S/E: None noted or reported. Mental Status Exam Appearance: Woman with medium length brown hair cut in a dario style, dressed in green unit scrubs and a sweater. Eye contact: Good Behavior: Pleasant, cooperative, paces the unit, watches TV, socializes with select peers. Speech: Clear, soft, normal rate & rhythm. Mood: Good Affect: Appropriate to situation. Thought process: Linear Thought Content: Not sure the meds are what have helped decrease her symptoms. Cognition: A/O x4. Insight: Fair. Judgment: Fair. Interventions PRN's used: None Therapeutic interventions Active listening, 1:1 Assessment, therapeutic conversation, active listening, medication administration/education/monitoring, provided distraction, encouragement and positive reinforcement, Q 15 minute safety checks. Justification of Continued Inpatient Treatment: Pt needed crisis interruption with medication adjustment and monitoring in a safe and therapeutic environment. Pt does not feel safe returning home. She has been accepted at the [facility], her PPD will be read Tuesday, she needs a rapid Covid test on Tuesday, plan is for her to discharge on Tuesday. Meds will be delivered from [facility].
[2021-05-09 19:33] VITALS: BP 117/50
[2021-05-09] MEDS: traZODone 50mg tablet PO PRN (21:23)
--- NOTE | 2021-05-10 03:28 | NUR ---
Nursing Progress Note: Legal hold: 5250 Client on involuntary status for GD Report received from ONEMI Villegas with use of SBAR Why are they here: Client is a patient of Dr Brito and reports not taking her medications. She has been experiencing significant changes in mood and behavior. Client has a history of visual hallucinations (ex: seeing snakes trying to attack her). Client is unable to function and described having a "nervous breakdown". She presented to the ED with anxiety and paranoia. Hx of childhood trauma. Assessment What happened this shift: Patient observed sitting in community room and socializing with peers this shift. Pleasant and cooperative with care; PRN Trazodone provided with positive effect. Patient denies SI, HI, A/VH; does not appear to be responding to IS and no delusional thought content expressed this shift. Patient participated in HS snack and observed watching TV with peers in the recreation room prior to bed; observed sleeping and does not appear to be having difficulty. No nightmares or disturbances reported at this time. S/I, H/I: Denies A/VH: Denies Sleep: Refer to sleep assessment ADL's: Independent Group attendance: Independent Were meds taken: Yes Any med S/E: Reports feeling fatigued Mental Status Exam Appearance: Neat and appropriately dressed in green unit attire Eye contact: Good Behavior: Pleasant and cooperative, social Speech: Clear, soft, regular rate/rhythm Mood: Euthymic Affect: Congruent to mood Thought process: Linear Thought Content: Meeting needs Cognition: A/O x4 Insight: Fair Judgment: Fair Interventions PRN's used: Trazodone Therapeutic interventions Active listening, 1:1 Assessment, safe and therapeutic environment, q 15 safety rounds. Justification of Continued Inpatient Treatment: Patient is here on a 5150 due to GD. Pt.s hold upheld on 04/30
--- NOTE | 2021-05-10 05:14 | NUR ---
Patient awoke and reported "intrusive" nightmares; continued to explain they were physically disturbing. Anxiolytics not needed at this time.
[2021-05-10 07:29] VITALS: BP 111/57
[2021-05-10] MEDS: PALIPERIDONE 3 MG TAB.ER.24 PO SCH (07:46)
[2021-05-10] MEDS: citalopram 20mg tablet PO SCH (07:46)
--- NOTE | 2021-05-10 16:56 | NUR ---
Nursing Progress Note: Legal hold: 5250 Client on involuntary status for GD Report received from Herlinda Banda RN with use of SBAR. Why are they here: Client is a patient of Dr Brito and reports not taking her medications. She has been experiencing significant changes in mood and behavior. Client has a history of visual hallucinations (ex: seeing snakes trying to attack her). Client is unable to function and described having a "nervous breakdown". She presented to the ED with anxiety and paranoia. Hx of childhood trauma. Assessment: What happened this shift: Patient resting quietly in bed at start of shift. Eats meals in community room with peers. Patient asks several questions about her medications and their dosages, but takes them without issue. PPD to L forearm is negative with 0mm induration. S/I, H/I: Denies A/VH: denies AH/ VH but describes tactile hallucinations at night but claims they are improved stating, Its something I think I could have ignored. Sleep: 7 hours per NOC ADL's: Independent Group attendance: N/A Were meds taken: Yes Any med S/E: None noted or reported. Mental Status Exam Appearance: Well groomed, dressed in green unit scrubs and a sweater. Eye contact: Good Behavior: Pleasant, cooperative, paces the unit, watches TV, socializes with peers. Speech: Clear, soft, normal rate & rhythm. Mood: Good Affect: Congruent with mood Thought process: Linear Thought Content: Looking forward to discharging possibly Tuesday. Cognition: A/O x4. Insight: Fair. Judgment: Fair. Interventions PRN's used: None Therapeutic interventions Active listening, 1:1 Assessment, therapeutic conversation, active listening, medication administration/education/monitoring, provided distraction, encouragement and positive reinforcement, Q 15 minute safety checks. Restraints/seclusion/emergency medication: N/A Justification of Continued Inpatient Treatment: Pt needed crisis interruption with medication adjustment and monitoring in a safe and therapeutic environment. Pt does not feel safe returning home. She has been accepted at the [facility], her PPD will be read Tuesday, she needs a rapid Covid test on Tuesday, plan is for her to discharge on Tuesday. Meds will be delivered from [place] pharmacy.
[2021-05-10 19:18] VITALS: BP 98/61
[2021-05-10] MEDS: traZODone 50mg tablet PO PRN (20:28)
[2021-05-10] MEDS: hydrOXYzine 25 MG tablet PO PRN (21:00)
--- NOTE | 2021-05-11 03:37 | NUR ---
Nursing Progress Note: Legal hold: 5250 Client on involuntary status for GD Report received from NOEMI Le with use of SBAR Why are they here: Client is a patient of Dr Brito and reports not taking her medications. She has been experiencing significant changes in mood and behavior. Client has a history of visual hallucinations (ex: seeing snakes trying to attack her). Client is unable to function and described having a "nervous breakdown". She presented to the ED with anxiety and paranoia. Hx of childhood trauma. Assessment What happened this shift: Patient social with peers in the community room at the beginning of shift. Pleasant and cooperative with care. Patient c/o "racing thoughts" and provided PRN Atarax and Trazodone per request with positive effects. Patient participated in HS snack and continued socialize with staff and peers prior to bed; observed sleeping and does not appear to be having difficulty. Patient needs rapid Covid test Tuesday in order to discharge to [facility] Tuesday. PPD was read on previous shift with negative results. S/I, H/I: Denies A/VH: Denies Sleep: Refer to sleep assessment ADL's: Independent Group attendance: Independent Were meds taken: Yes Any med S/E: Reports feeling fatigued Mental Status Exam Appearance: Neat and appropriately dressed in green unit attire Eye contact: Good Behavior: Pleasant and cooperative, social Speech: Clear, soft, regular rate/rhythm Mood: Euthymic Affect: Congruent to mood Thought process: Linear Thought Content: Meeting needs Cognition: A/O x4 Insight: Fair Judgment: Fair Interventions PRN's used: Trazodone Therapeutic interventions Active listening, 1:1 Assessment, safe and therapeutic environment, q 15 safety rounds. Justification of Continued Inpatient Treatment: Patient is here on a 5150 due to GD. Pt.s hold upheld on 04/30
[2021-05-11] MEDS: citalopram 20mg tablet PO SCH (07:59)
[2021-05-11] MEDS: PALIPERIDONE 3 MG TAB.ER.24 PO SCH (07:59)
[2021-05-11 08:00] VITALS: BP 109/62
--- NOTE | 2021-05-11 17:49 | NUR ---
Nursing Progress Note: Legal hold: 5250 Client on involuntary status for GD Report received from NOEMI Rajput with use of SBAR. Why are they here: Client is a patient of Dr Brito and reports not taking her medications. She has been experiencing significant changes in mood and behavior. Client has a history of visual hallucinations (ex: seeing snakes trying to attack her). Client is unable to function and described having a "nervous breakdown". She presented to the ED with anxiety and paranoia. Hx of childhood trauma. Assessment: What happened this shift: Patient received sleeping in her room. Awoke to receive medication. Bedside assessment completed. Pt denies S/I ,H/I however is delusional AEB statements of Im hearing unidentifiable voices. Pt reports feeling good and anticipating new placement for tomorrow. She appears to have good insight re her needs AEB statement of Im going to [facility] soon I have been there before and I think its a good idea because Im not ready to go home yet. Pt. ate breakfast in the dining room with peers and napping intermittently. Pt. observed in dining room at lunch time no s/sx of responding to IS. 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 Results came in from lab with a negative result. Pt. spent remainder of afternoon in TV room and dining room socially interacting with numerous pts. She is currently sitting in dining room waiting for dinner. S/I, H/I: Denies A/VH: Auditory Sleep: 8.25 hours per NOC ADL's: Independent Group attendance: N/A Were meds taken: Yes Any med S/E: None noted or reported. Mental Status Exam Appearance: Clean and well groomed, dressed in green unit scrubs and a sweater. Eye contact: Good Behavior: Pleasant Speech: Clear soft spoken Mood: Motivated Affect: Congruent with mood Thought process: Linear Thought Content: Looking forward to discharging possibly tomorrow. Cognition: A/O x4. Insight: Good Judgment: Fair. Interventions PRN's used: None Therapeutic interventions Active listening, 1:1 Assessment, therapeutic conversation, active listening, medication administration/education/monitoring, provided distraction, encouragement and positive reinforcement, Q 15 minute safety checks. Restraints/seclusion/emergency medication: N/A Justification of Continued Inpatient Treatment: Pt needed crisis interruption with medication adjustment and monitoring in a safe and therapeutic environment. Pt does not feel safe returning home. She has been accepted at the [facility].
[2021-05-11 19:28] VITALS: BP 110/58
[2021-05-11] MEDS: traZODone 50mg tablet PO PRN (20:46)
[2021-05-11] MEDS: hydrOXYzine 25 MG tablet PO PRN (20:48)
--- NOTE | 2021-05-12 00:37 | NUR ---
Nursing Progress Note: Legal hold: 5250 Client on involuntary status for GD Report received from NOEMI Le with use of SBAR Why are they here: Client is a patient of Dr Brito and reports not taking her medications. She has been experiencing significant changes in mood and behavior. Client has a history of visual hallucinations (ex: seeing snakes trying to attack her). Client is unable to function and described having a "nervous breakdown". She presented to the ED with anxiety and paranoia. Hx of childhood trauma. Assessment What happened this shift: Patient observed socializing with peers in the community room at the beginning of shift. Pleasant and cooperative with care; compliant with medication. PRN Trazodone and Atarax provided per patient request with positive effect. Patient continues to deny SI, HI, A/VH; does not appear to be responding to IS and no delusional thought content expressed. Patient reports looking forward to discharge to [facility] next shift. Patient participated in HS snack and watching TV with peers prior to bed; observed sleeping and does not appear to be having difficulty. S/I, H/I: Denies A/VH: Denies Sleep: Refer to sleep assessment ADL's: Independent Group attendance: Independent Were meds taken: Yes Any med S/E: Reports feeling fatigued Mental Status Exam Appearance: Neat and appropriately dressed in green unit attire Eye contact: Good Behavior: Pleasant and cooperative, social Speech: Clear, soft, regular rate/rhythm Mood: Euthymic Affect: Congruent to mood Thought process: Linear Thought Content: Meeting needs; discharge Cognition: A/O x4 Insight: Fair Judgment: Fair Interventions PRN's used: Trazodone and Atarax Therapeutic interventions Active listening, 1:1 Assessment, safe and therapeutic environment, q 15 safety rounds. Justification of Continued Inpatient Treatment: Patient is here on a 5150 due to GD. Pt.s hold upheld on 04/30
[2021-05-12] MEDS: PALIPERIDONE 3 MG TAB.ER.24 PO SCH (07:38)
[2021-05-12] MEDS: citalopram 20mg tablet PO SCH (07:38)
--- NOTE | 2021-05-12 07:38 | NUR ---
D/C Presenting Issues: Pt is scheduled to d/c today and transitioning to [facility] for additional stabilization & support services. Interventions: Reviewed chart, gathered COVID-19 & PPD results, consulted w/attending P/A and obtained signed meds order, contacted [facility] and scheduled post-hosptial f/u for pt. Test results and signed meds order faxed to [facility] to schedule transportation. Plan: Pt to d/c today. Nancy Kwan LCSW Addendum: 05/12/21 at 0742 by Nancy Kwan SS Amended: Links added.
[2021-05-12 08:34] VITALS: BP 111/58
--- NOTE | 2021-05-12 14:07 | NUR ---
Pt. attended group today. Todays group was about the difference between Growth Mindset vs. Fixed Mindset. We learned about the differences and then discussed what aspect of developing a growth mindset they wanted to work on. Pt. was engaged in the group discussion. She was alert and oriented X 4. Her thought content and thought process was WNL. She reported that the area she would like to work on toward a growth mindset is not seeking others approval. She feels that this is a place she struggles in which stops her forward growth and progression. She reported that someone suggest she go to see a Hydrodynamics Teacher and she feels this would be a good idea to help her move forward in her life and set goals. She reported that she was appreciative of the group. Roseanne Sims LCSW
--- NOTE | 2021-05-12 14:55 | NUR ---
DC NOTES Pt. discharged to [facility], driven by [facility] truck driver teamster. Pt. discharged with all belongings and valuables. RN reviewed discharge f/u plan and medications and pt. verbalizes understanding. Pt.signed aoll discharge paperwork. Pt. is A/O X4 and in no apparent distress. Pt. showed imporovement during hospitalization and denies SI/HI, and hallucinations. Pt. endorses auditory hallucinations but states they are "good" voices.
== END 2021-05-12 15:00 | disposition home or self-care (01) | DRG 751 ==
LOC: ER 08:14 → ADULT MH 21:15
PROVIDERS: ADMIT Psychiatry & Neurology Psychiatry; ATTEND Psychiatry & Neurology Psychiatry
DX: F29 Unspecified psychosis not due to a substance or known physiological condition (principal); F32.9 Major depressive disorder, single episode, unspecified; F41.9 Anxiety disorder, unspecified; Z20.822 Contact with and (suspected) exposure to COVID-19; Z60.2 Problems related to living alone; Z88.8 Allergy status to other drugs, medicaments and biological substances; Z79.899 Other long term (current) drug therapy
CPT/HCPCS: 36415; 80053; 80061; 80305; 80320; 81001; 84443; 85025; 87081; 87635; 99285; Q0177

== ENCOUNTER 2022-04-09 06:35 | Emergency (ER) | payer MEDICAID ==
[~2022-04-09] VITALS: Ht 170.2 cm; Wt 84.1 kg
[~2022-04-09 06:35] MED LIST changes: -CEPH-585 PO; +HYDR-3686 PO; +NICO-668 BC; -PALI1.5T PO; +PALI6TAB6 PO; +TRAZ-251 PO
[2022-04-09 06:41] VITALS: BP 141/111
== END 2022-04-09 09:10 | disposition home or self-care (01) ==
LOC: ER 06:36
DX: G47.00 Insomnia, unspecified (principal); Z88.8 Allergy status to other drugs, medicaments and biological substances
CPT/HCPCS: 99281

== ENCOUNTER 2022-04-15 15:17 | Emergency (ER) | payer MEDICAID ==
[~2022-04-15] VITALS: Ht 170.2 cm; Wt 81.8 kg
[2022-04-15 15:18] VITALS: BP 130/71
[2022-04-16] MEDS ORDERED: PALI1.5T PO (19:51)
== END 2022-04-15 16:42 | disposition left against medical advice (07) ==
LOC: ER 15:18
DX: R44.3 Hallucinations, unspecified (principal); Z53.21 Procedure and treatment not carried out due to patient leaving prior to being seen by health care provider

== ENCOUNTER 2022-04-16 17:22 | Inpatient (IN) | payer MEDICAID ==
[~2022-04-16] VITALS: Ht 170.2 cm; Wt 81.0 kg
[2022-04-16 18:34] LABS: BASOPHILS # (AUTO) 0.1 X10'3 (0-0.2); BASOPHILS % (AUTO) 1.3 % (0-1); EOSINOPHILS # (AUTO) 0.3 X10'3 (0-0.9); EOSINOPHILS % (AUTO) 4.6 % (0-6); HEMATOCRIT 37.7 % (35.0-45.0); HEMOGLOBIN 12.5 g/dl (12.0-16.0); LYMPHOCYTES # (AUTO) 1.2 X10'3 (1.1-4.8); LYMPHOCYTES % (AUTO) 18.8 % (21-51); MEAN CORPUSCULAR HEMOGLOBIN 28.7 PG (27.0-31.0); MEAN CORPUSCULAR HGB CONC 33.1 g/dL (33.0-36.5); MEAN CORPUSCULAR VOLUME 86.8 FL (78-98); MEAN PLATELET VOLUME 11.2 FL (7.4-10.4); MONOCYTES # (AUTO) 0.5 X10'3 (0-0.9); MONOCYTES % (AUTO) 7.3 % (2-12); NEUTROPHILS # (AUTO) 4.2 X10'3 (1.8-7.7); PLATELET COUNT 170 X10'3 (140-440); RED BLOOD COUNT 4.35 X10'6 (4.20-5.60); RED CELL DISTRIBUTION WIDTH 12.7 % (11.5-14.5); WHITE BLOOD COUNT 6.2 X10'3 (4.5-11.0)
[2022-04-16 18:52] LABS: ALANINE AMINOTRANSFERASE 21 U/L (12-78); ALBUMIN/GLOBULIN RATIO 1.2 (1.1-1.5); ALKALINE PHOSPHATASE 55 IU/L (46-116); ANION GAP 10 (8-16); ASPARTATE AMINO TRANSFERASE 11 U/L (10-37); BILIRUBIN,TOTAL 1.2 MG/DL (0.1-1.0); BLOOD UREA NITROGEN 7 MG/DL (7-18); BUN/CREATININE RATIO 9.1 (6.6-38.0); CALCIUM 8.9 MG/DL (8.5-10.1); CHLORIDE 105 MMOL/L (99-107); CREATININE 0.77 MG/DL (0.40-0.90); GLUCOSE 84 MG/DL (70-104); POTASSIUM 3.6 MMOL/L (3.5-5.1); SODIUM 141 MMOL/L (135-145); TOTAL CARBON DIOXIDE 25.9 MMOL/L (24-32); TOTAL PROTEIN 7.3 G/DL (6.4-8.2); eGFR 83 ML/MIN
[2022-04-16 19:15] LABS: ETHANOL < 0.010 GM/DL (0.0-0.010)
[2022-04-16 19:18] LABS: URINE HCG NEGATIVE (NEG)
--- NOTE | 2022-04-16 19:44 | NUR ---
Pt saying she wants to leave and trying to walk out abulance doors. Techs redirect her and walk her back to her room.
[2022-04-16] MEDS ORDERED: PALI1.5T PO (19:51)
--- NOTE | 2022-04-16 19:55 | NUR ---
Pt transferred to overflow.
--- NOTE | 2022-04-16 19:58 | NUR ---
Patient received from main ED. Patient placed in Room 20.
--- NOTE | 2022-04-16 21:42 | NUR ---
Patient up at at the nurses' station interacting with staff.
--- NOTE | 2022-04-16 22:15 | NUR ---
primary rn to break pt out of bed asking for snack , no other changes to previous assessmnet .
[2022-04-16 22:48] LABS: URINE AMPHETAMINE SCREEN NEGATIVE (Neg); URINE BARBITUATE SCREEN NEGATIVE (Neg); URINE BENZODIAZEPINES SCREEN NEGATIVE (Neg); URINE CANNABINOID SCREEN NEGATIVE (Neg); URINE COCAINE SCREEN NEGATIVE (Neg); URINE METHADONE SCREEN NEGATIVE (Neg); URINE PHENCYCLIDINE SCREEN NEGATIVE (Neg)
--- NOTE | 2022-04-16 23:05 | NUR ---
Patient resting quietly in bed in a safe environment.
--- NOTE | 2022-04-17 00:01 | NUR ---
packet faxed to [facility] at [phone]
--- NOTE | 2022-04-17 00:20 | NUR ---
Patient awake,m ambulates to rest room
--- NOTE | 2022-04-17 01:33 | NUR ---
Patient resting quietly in bed.
--- NOTE | 2022-04-17 02:56 | NUR ---
Patient resting quietly in bed in line of sight of all staff.
--- NOTE | 2022-04-17 03:55 | NUR ---
Patient resting quietly in bed.
--- NOTE | 2022-04-17 05:12 | NUR ---
Patient resting in bed, vital signs wnl
--- NOTE | 2022-04-17 07:05 | NUR ---
Received Pt in bed sleeping w/o distress at this time.
--- NOTE | 2022-04-17 09:00 | NUR ---
Pt woke and wanted to shower. Pt became demanding and returned to her bed when told we did not have showers. Pt ate breakfast.
[2022-04-17] MEDS ORDERED: CITA20TA26 PO (11:04)
--- NOTE | 2022-04-17 11:05 | NUR ---
Pt continues to ask for a shower; "do you want me to go find one myself". Pt given coloring and reading.
[2022-04-17] MEDS ORDERED: LORazepam 1 MG tablet PO ONE (11:25)
[2022-04-17] MEDS: citalopram 20mg tablet PO SCH (12:11)
[2022-04-17] MEDS: paliperidone 1.5mg ER tablet PO SCH (12:11)
--- NOTE | 2022-04-17 12:30 | NUR ---
Med rec completed and signed by . Pt given heydi, glynn and one time ativan, and she took them w/o issue.
--- NOTE | 2022-04-17 14:35 | NUR ---
Pt accepted to [facility]. Pt notified and is happy about her disposition.
[2022-04-17 14:45] VITALS: BP 119/77
[2022-04-17] MEDS ORDERED: magnesium hydroxide 30ml (MOM) UD suspension PO PRN (15:55)
[2022-04-17] MEDS ORDERED: acetaminophen 325mg tablet PO PRN ×2 (15:55)
[2022-04-17] MEDS ORDERED: loperamide 2mg capsule PO PRN (15:55)
[2022-04-17] MEDS ORDERED: mag hydrox/Alum hydrox/simeth 30ml oral suspension PO PRN (15:55)
--- NOTE | 2022-04-17 16:03 | NUR ---
Admit note: Pt admitted to [facility] today on 5150 for DTS from our ER at 1445. Pt has been diagnosed with Bipolar and depression and is not taking meds. She was running in front of cars with disregard for her safety.
[2022-04-17 19:41] VITALS: BP 125/62
--- NOTE | 2022-04-17 21:30 | NUR ---
Nursing Progress Note: Problem: The patient was admitted on a 5150 for being a danger to herself. Pt has been diagnosed with Bipolar and depression and is not taking meds. She was running in front of cars with disregard for her safety. Intervention: One to one with the patient to assess severity of thought disorder and mood symptoms. Assessed for self harm risk. Physical assessment completed. Response: The patient was resting on her bed at the beginning of the shift. She was very pleasant when engaged for the evening assessment. When asked how her mood was she replied, "I'm really calm" and then added, "I feel really exhausted from all that I'm carrying" She was asked about her sleep and she replied that she "jose loose track. Its off and on" She reports that she is having tactile hallucinations. When asked why she was running in the street she replied, "Because I feel that this information has gotten into the wrong hands...They're laughing about my sabianist beliefs" She stated that she doesn't know who they are but they talk to her and sometimes curse at her and at other times say kind things. She stated, "I feel like I'm walking and talking in opposites" She denies thoughts of wanting to harm herself or any one else. She has not exhibited any behaviors that have required redirection from staff. Plan: Continue q 15 minute safety checks. Assess for severity of thought disorder and present reality as needed. Provide medication education as needed.
[2022-04-18 08:00] VITALS: BP 109/67
[2022-04-18 08:07] LABS: HEMOGLOBIN A1C 4.9 % (4.5-6.2)
[2022-04-18] MEDS: citalopram 20mg tablet PO SCH (08:13)
[2022-04-18] MEDS: paliperidone 1.5mg ER tablet PO SCH (08:13)
[2022-04-18 08:16] LABS: CHOL/HDL RATIO 2.2 (0.00-4.99); CHOLESTEROL 117 MG/DL (0-200); HDL CHOLESTEROL 53 MG/DL (35-60); LDL CHOLESTEROL 53 MG/DL (50-100); TRIGLYCERIDES 30 MG/DL (20-135)
[2022-04-18] MEDS ORDERED: hydrOXYzine 10 MG tablet PO PRN (13:10)
[2022-04-18] MEDS ORDERED: zolpidem 5mg tablet PO PRN (13:30)
--- NOTE | 2022-04-18 14:30 | NUR ---
Received order for urinalysis from an order written by Dr. Spring. Informed the patient the process for collecting a clean catch urinalysis and wiping with the hong soap wipes prior to collection. Patient listened attentively. Patient then walked up the to Charting Room where we were documenting, and informed me with tears that she would not be completing the urinalysis as ordered by the MD. Patient said she did not want to use the Hong soap wipes to clean herself as I had instructed. Informed the patient that I would make a note in her chart explaining to the Dr why she would not be completing the urinalysis.
--- NOTE | 2022-04-18 17:41 | NUR ---
Nursing Progress Note: Problem:The patient was admitted on a 5150 for being a danger to herself. Pt has been diagnosed with Bipolar and depression and is not taking meds. She was running in front of cars with disregard for her safety. Intervention: Received patient and found patient to be much more reserved and not as appearing as happy as she initially was on admission yesterday afternoon. Patient appeared troubled and withholding answers to some of the questions that were asked during my assessment. Patient reported yesterday that she and her friend live with a male, who is her current landlord. Patient appeared to have a flat affect and self isolated most of the day. Patient looks tearful and appears to have difficulty disclosing any part of the reason she felt as though I really needed to come here and get some help from all of you. Patient states last time I came here I really went far after that. At approximately 1400, Dr. Spring ordered Atarax, Trazodone, and Urinalysis. Took the patient a urine cup and 3 nelson wipes, and explained to the patient the process of cleaning herself and obtaining collection of a urine sample, and informed we would sent it to the laboratory once collected. Once the procedure was explained to the patient, the patient then stated I dont care who you said ordered it, but Im not going to collect the urine specimen, I refuse to do the urine test. When asked why, the patient reiterated that she was not going to collect the urine sample for the test. Informed the patient that I would make a note for Dr. Spring. Patient returned to the Observation Room and appeared tearful and asked When can I get out of here? Informed the patient that her current stay is 72 hours, and at the end of the 72 hours the Physician will make a determination on whether she will go home or if she has to stay. I asked the patient if I can do anything to make her current stay here much easier, and she replied No. Patient stated Its not about you doing anything, its about me and you are doing everything you can do to make things better. Informed the patient that if I can help her in any way, I would be happy to do so, and I would be checking in on her. Patient smiled and returned to her room to self-isolate. Response: Patient reported yesterday that she is the hardest on herself, much more than anyone else can be. Patient informed that she Wants to get out of here as early as she could over the next couple of days. Encouraged the patient to speak to her DrRupa in the morning, about the things that you are going through. He can try to assist you in any issues, and that is the reason we are here. Plan: Continue q 15 minute safety checks. Assess for severity of thought disorder and present reality as needed. Provide medication education as needed.
[2022-04-18] MEDS: traZODone 50mg tablet PO PRN (19:55)
[2022-04-18 20:11] VITALS: BP 111/69
[2022-04-18 21:09] LABS: CLARITY,URINE SLIGHTLY CLOUDY (Clear); COLOR,URINE YELLOW (Yellow); GLUCOSE, URINE NEGATIVE (Neg); KETONES,URINE NEGATIVE (Neg); LEUKOCYTE ESTERASE ,URINE TRACE (Neg); NITRITES, URINE NEGATIVE (Neg); OCCULT BLOOD,URINE LARGE (Neg); PH,URINE 6.5 (4.8-8.0); PROTEIN,URINE NEGATIVE (Neg); UROBILINOGEN,URINE 0.2 E.U/dL (0.2-1.0)
[2022-04-18 21:21] LABS: UA COLLECTION TYPE CLN CATCH MIDSTREAM
[2022-04-18 21:22] LABS: BACTERIA,URINE NONE SEEN /HPF (Neg); RBC,URINE 50-100 /HPF (0-2); SQUAMOUS EPITHELIAL CELL,UR FEW /LPF (FEW); WBC,URINE 0-4 /HPF (0-4)
--- NOTE | 2022-04-18 23:26 | NUR ---
Nursing Progress Note: Problem: The patient was admitted on a 5150 for being a danger to herself. Pt has been diagnosed with Bipolar and depression and is not taking meds. She was running in front of cars with disregard for her safety. Intervention: One to one with the patient to assess severity of thought disorder and mood symptoms. Assessed for self harm risk. Physical assessment completed. Collected UA specimen and sent to the lab. Discussed 5150 process with the patient. Response: The patient was observed in the leahy dancing and singing had appeared to have an elevated mood but a short time later she appeared angry and intense and saying she needed to leave. "I need to get out of here. I just drank water. I just drank water with a straw. Someone spit in the straw and I drank that!" She made paranoid statements about the staff and then stated that she believed that some of the patients were not real but actors. She stated that she wanted to be discharged and be able to buy food that she could trust. When asked how mood was she stated, "I've been everywhere" She denies that she is suicidal or having thoughts to harm others. Plan: Continue q 15 minute safety checks. Assess mood symptoms at least every shift. Present reality with the patient. Medicate with prn medications as needed.
[2022-04-19] MEDS: citalopram 20mg tablet PO SCH (08:07)
[2022-04-19] MEDS: paliperidone 1.5mg ER tablet PO SCH (08:07)
[2022-04-19 08:57] VITALS: BP 121/67
--- NOTE | 2022-04-19 15:24 | NUR ---
Basia is a 41 y/o female who was placed on 5150 by D for danger to self. Basia had initially presented to [facility] ED after feeling like she was and that someone was trying to kill her. She left before being evaluated as she did not like the food and nutrition services supervisor she received. After leaving she was observed to be acting erratically and running into traffic by staff and law enforcement. She was placed on 5150 and taken to [facility]. Upon evaluation by [facility], Basia reported she had taken herself off her medications because she felt like someone was tampering with them. She had also reported she was not eating or drinking due to fear that someone was tampering with them as well. She reported seeing things at night in her room and did not know if they were real or not. She was unable to safety plan and was later transferred to [facility]. Basia told staff writer, "I am here because things have been happening in the home and triggering me. I have not been taking my medications consistently. Sometimes I feel sane and insane all at the same time". Basia currently receives mental health services at [facility]. She would like to seek counseling somewhere else though. She currently lives with her landlord and a roommate whom she met at [facility]. 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 She currently is only working 18 hrs/week. 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 ANGEL Rehman Addendum: 04/19/22 at 1524 by Hannah NUÑEZ Amended: Links added.
--- NOTE | 2022-04-19 19:03 | NUR ---
Nursing Progress Note: Problem: The patient was admitted on a 5150 for being a danger to herself. Pt has been diagnosed with Bipolar and depression and is not taking meds. She was running in front of cars with disregard for her safety. Intervention: Received patient who was already awake and ambulating up and down the halls dancing and singing. Patient is smiling and laughing, at many times inappropriately, then continues on with the same behavior. Patient at times appears manic when she starts laughing in a high pitched tone and isolates herself somewhere in the hallway and escalates her dancing and singing significantly. Patient took her medications without hesitation, and showered afterward. Patient spent the afternoon resting in her bed and watched TV. Patient asked again today How much longer do I have to stay here? Informed the patient that she would be meeting with her Physician tomorrow and together you will talk about how you are doing and what other goals do you need to meet before you are discharged from [facility]. Informed patient to be open and honest with the Physician, and to think about how you were feeling when you came to [facility], and are you truly feeling better and ready to return home. Response: Patient has remained in a low tone since our conversation this morning about the possibility of going home tomorrow, and has not continued dancing and singing in what appears to be manic-type behavior. Plan: Continue q 15 minute safety checks. Assess for severity of thought disorder and present reality as needed. Provide medication education as needed.
[2022-04-19 20:00] VITALS: BP 114/63
[2022-04-19] MEDS: traZODone 50mg tablet PO PRN (20:22)
--- NOTE | 2022-04-20 00:51 | NUR ---
Nursing Progress Note: Problem: The patient was admitted on a 5150 for being a danger to herself. Pt has been diagnosed with Bipolar and depression and is not taking meds. She was running in front of cars with disregard for her safety. Intervention: Advanced Analytics Associate continues to provide pt. with a safe and therapeutic environment, clear communication, active listening and positive encouragement. Pt. encouraged to participate on unit and in group therapy, and 1:1 assessment provided with medication administration. Q15min checks continue for pt. safety. Response: Pt was in the leahy walking and socializing with peers at change of shift. She is pleasant and appears to be in a good mood. pt states she is worried about her finances and cleaned out her storage to save money but still doesnt know how she is going to make ends meet. Pt states "Maybe I need to go back to the [facility] I think Im getting bored here, but I think I need to stay here. Pt denies S/I. Pt has snacks at HS and went to bed after requesting prn trazodone for sleep. Plan: Continue q 15 minute safety checks. Assess for severity of thought disorder and present reality as needed. Provide medication education as needed.
[2022-04-20 08:00] VITALS: BP 120/65
--- NOTE | 2022-04-20 08:08 | NUR ---
Pt. attended group today. Today's group was about the different communications styles i.e passive, aggressive and assertive. the group started with a communication exercise where they had to pair up and share about themselves with each other. We then discussed what the characteristics of each style was. We then discussed where they saw themselves at now and where they would like to be with their communication style. Pt. engaged appropriately in the group. She appeared a bit guarded but when asked a direct question she would share what her thoughts were. Pt reported she felt she saw parts of herself in each communication style dependent on the situation. She listened well to her peers and seemed to enjoy the group though she tended to give the impression she was there but not completely a part of the group. Her thought content and thought process were WNL. She was alert and oriented X 4. Her demeanor was calm and compliant. Roseanne Sims LCSW Addendum: 04/20/22 at 0815 by Roseanne NUÑEZ This was a group note for 04/19/2022.
[2022-04-20] MEDS: citalopram 20mg tablet PO SCH (08:34)
[2022-04-20] MEDS: paliperidone 1.5mg ER tablet PO SCH (08:34)
--- NOTE | 2022-04-20 12:07 | NUR ---
[facility] REFERRAL Completed and sent [facility] referral. There are not currently any beds available and it is unknown where there will be. ANGEL Rehman
[2022-04-20] MEDS ORDERED: PALIPERIDONE 3 MG TAB.ER.24 PO ONE (12:45)
--- NOTE | 2022-04-20 13:33 | NUR ---
[facility] INTERVIEW WED (04/21/22) ANGEL Rehman Addendum: 04/20/22 at 1339 by Hannah Lofton Evan will be interviewing today instead. ANGEL Rehman
--- NOTE | 2022-04-20 16:03 | NUR ---
Nursing Progress Note: Basia Problem: The patient was admitted on a 5150 for being a danger to herself. Pt has been diagnosed with Bipolar and depression and is not taking meds. She was running in front of cars with disregard for her safety. Intervention: Order Analyst continues to provide pt. with a safe and therapeutic environment, clear communication, active listening and positive encouragement. Pt. encouraged to participate on unit and in group therapy, and 1:1 assessment provided with medication administration. Q15min checks continue for pt. safety. Response: Pt. denies SI, HI, A/VH and reports she was admitted d/t I stopped taking my meds, bad decisions She has spent allot of time out her room , and socializing with cohorts and staff. Pt. is pleasant, smiles often, has intense eye contact. Pt. approached communications writer requesting to DC, but later changed her mind and wanted to stay. Pt. takes her meds without hesitancy, ate all her meals in the dining room with cohorts. She has good hygiene and is wearing street clothes. Plan: Continue q 15 minute safety checks. Assess for severity of thought disorder and present reality as needed. Provide medication education as needed.
[2022-04-20 20:14] VITALS: BP 108/69
[2022-04-20] MEDS: Melatonin 3mg tablet PO SCH (20:19)
--- NOTE | 2022-04-21 02:16 | NUR ---
Nursing Progress Note: Basia Problem: The patient was admitted on a 5150 for being a danger to herself. Pt has been diagnosed with Bipolar and depression and is not taking meds. She was running in front of cars with disregard for her safety. Intervention: Farmworker Brooder Farm continues to provide pt. with a safe and therapeutic environment, clear communication, active listening and positive encouragement. Pt. encouraged to participate on unit and in group therapy, and 1:1 assessment provided with medication administration. Q15min checks continue for pt. safety. Response: Pt was walking in the hallway at change of shift, then spent time in her room reading her bible. Pt states "Its a green light, I'm going to the [facility], they just have to work out some paperwork." pt denies s/i. Pt states she is having trouble w/her living situation and roommate having health issues. She also states she has some "differenced with my landlord about housekeeping." She is hopeful that the [facility] can give her time to figure out a different living situation. Pt states "I really want to be well so I don't have to come back." Pt was in a pleasant mood this evening, had snacks, took HS med and went to bed. Plan: Continue q 15 minute safety checks. Assess for severity of thought disorder and present reality as needed. Provide medication education as needed.
--- NOTE | 2022-04-21 07:17 | NUR ---
Initial: Pt admitted w/ major depressive disorder per EMR. Currently on Regular diet w/ mostly 100% intake of meals meeting needs at this time. [facility] 04/20 w/ PRN bowel care available. No nutrition intervention implemented at this time, will continue to monitor. Recs: 1. Continue Regular diet as tolerated 2. Bowel care PRN 3. Weekly wts Addendum: 04/21/22 at [address] Amended: Links added.
[2022-04-21] MEDS: paliperidone 1.5mg ER tablet PO SCH (08:13)
[2022-04-21] MEDS: citalopram 20mg tablet PO SCH (08:19)
[2022-04-21 08:36] VITALS: BP 107/60
--- NOTE | 2022-04-21 10:17 | NUR ---
Pt. attended group today. We talked about Boundaries, the different kinds and how to communicate our boundaries to others. Each pt. did a written activity to help them identify a person/situation they struggle to set boundaries in. She engaged in the group appropriately. She shared when asked, she was a bit guarded today. She is alert and oriented X 4. Her thought content and thought process were WNL. Her demeanor is calm, compliant and pleasant. Her thought content and thought process are WNL. Roseanne Sims, EMPERATRIZ
--- NOTE | 2022-04-21 10:32 | NUR ---
Pt. attended group today. We talked about Communication today focusing on how to utilize I messages. This Processor Helper shared how to create an I message and then we practiced writing them on the board. We then did an art expression exercise called holding on and letting go with the objective of identifying and releasing stressors. Pt. engaged in the group well. She sat with two peers whom she seemed to have a good report with and enjoy socializing with. Pt. was interested in the topic sharing her thoughts on it and asking questions. She engaged in the Art Expression well and reported that she really enjoyed it. Her thought content and thought process were WNL. Her mood was good with a full a range of affect. Her demeanor was calm and compliant. She continue to be guarded in her presentation wearing sunglasses during the group but when asked questions she responds pleasantly and is open to sharing her thoughts. Roseanne Sims LCSW Addendum: 04/22/22 at 1041 by Roseanne Sims This pt did not wear sunglasses in the group, that part of the note was meant for another patient. Pt. was open,compliant and pleasant throughout the group.
--- NOTE | 2022-04-21 10:47 | NUR ---
ACCEPTED TO [facility] Basia has been accepted to [facility] and they can admit her tomorrow. She needs 30 days/meds, covid test, chest x-ray to rule out TB, and paperwork completed for admittance. ANGEL Rehman
--- NOTE | 2022-04-21 15:46 | NUR ---
Nursing Progress Note: Basia Problem: The patient was admitted on a 5150 for being a danger to herself. Pt has been diagnosed with Bipolar and depression and is not taking meds. She was running in front of cars with disregard for her safety. Intervention: Spout Worker continues to provide pt. with a safe and therapeutic environment, clear communication, active listening and positive encouragement. Pt. encouraged to participate on unit and in group therapy, and 1:1 assessment provided with medication administration. Q15min checks continue for pt. safety. Response: Pt. denies SI, HI, A/VH and reports she was admitted d/t problems with taking my meds She is upbeat and active in the unit, she can often be seen interacting with cohorts and is friendly. Pt. ate all her meals in the main dining room with others. She has good hygiene and is wearing unit scrubs. Pt. takes her meds without hesitation and reports her DC plans may be going to supportive place. Plan: Continue q 15 minute safety checks. Assess for severity of thought disorder and present reality as needed. Provide medication education as needed.
[2022-04-21 19:22] VITALS: BP 112/61
[2022-04-21] MEDS: Melatonin 3mg tablet PO SCH (20:57)
--- NOTE | 2022-04-21 23:02 | NUR ---
Nursing Progress Note: Basia Problem: The patient was admitted on a 5150 for being a danger to herself. Pt has been diagnosed with Bipolar and depression and is not taking meds. She was running in front of cars with disregard for her safety. Intervention: Survey Chief continues to provide pt. with a safe and therapeutic environment, clear communication, active listening and positive encouragement. Pt. encouraged to participate on unit and in group therapy, and 1:1 assessment provided with medication administration. Q15min checks continue for pt. safety. Response: Pt was walking in the hallway at change of shift then spent time in her room. Pt requested a box of kleenex because "Im experiencing grief right now." Pt was crying. Pt was given Kleenex and asked if she needed to talk about what is going on? She replied "No Im just going to sit with this feeling a while." Pt was later smiling and having a snack in the group room. She explained "Theres just so much going on here and its overwhelming for me because I want to help everyone here and I can't do it all!" Pt declined prn Atarax offered for anxiety. Pt reports Melatonin made her feel tired today but she wants to take it again tonight, stating it did help her sleep. Plan: Continue q 15 minute safety checks. Assess for severity of thought disorder and present reality as needed. Provide medication education as needed.
[2022-04-22] MEDS ORDERED: HYDR-3717 PO (06:29)
[2022-04-22] MEDS ORDERED: CITA-124 PO (06:29)
[2022-04-22] MEDS ORDERED: MELA3TAB39 PO (06:29)
[2022-04-22] MEDS ORDERED: PALI3TAB5 PO (06:29)
[2022-04-22 06:59] VITALS: BP 104/67
[2022-04-22] MEDS: citalopram 20mg tablet PO SCH (07:56)
[2022-04-22] MEDS: paliperidone 1.5mg ER tablet PO SCH (07:56)
[2022-04-22 08:00] VITALS: BP 104/67
--- NOTE | 2022-04-22 10:06 | NUR ---
DISCHARGE PLAN Basia is discharging to [facility] today. She has follow up scheduled with [facility]. She will be able to go to [facility] once her medications arrive from [facility]
--- NOTE | 2022-04-22 15:44 | NUR ---
Discharge Note: Paperwork and follow up reviewed with the patient who is agreeable to discharge to the [facility]. Escorted off the unit by staff with all of her belongings at 1430 and is picked up the [facility] courtesy bus driver. Medications are given to the courtesy bus driver. Discharged with the following instructions: Follow-Up: Patient has been scheduled/referred to the following providers for post-hospital discharge and aftercare treatment. Psychiatrist: Appointment: 05/05/22 at 2:[address] Olguin [address] Overhead Crane Technician: Jennifer Marin [facility] Therapist: Follow up with [facility] Malachi [place] [address] Discharge Address: [facility] [address] [place] [address] Transportation: [facility] courtesy bus driver Patient given community crisis services information and National suicide hotline handout. Resources for education regarding mental illness: [address] [address] For urgent mental health crisis needs please contact Mobile Crisis Outreach Team Tuesday through Tuesday 8:30am to 5:00pm. . Mobile Crisis Outreach Team [address] [place] [phone] Urgent Out-patient Mental Health Services 365 Days A Year: [address] [address] Hours: Mon thru Fri 12pm-9pm Weekends 11am-9pm
== END 2022-04-22 14:30 | disposition home or self-care (01) | DRG 751 ==
LOC: ER 17:23 → ED HOLD 04-17 12:10 → ADULT MH 04-17 14:57
PROVIDERS: ADMIT Psychiatry & Neurology Psychiatry; ATTEND Psychiatry & Neurology Psychiatry
DX: F33.3 Major depressive disorder, recurrent, severe with psychotic symptoms (principal); F29 Unspecified psychosis not due to a substance or known physiological condition; F41.9 Anxiety disorder, unspecified; E66.3 Overweight; Z20.822 Contact with and (suspected) exposure to COVID-19; M81.0 Age-related osteoporosis without current pathological fracture; Z79.899 Other long term (current) drug therapy; Z63.4 Disappearance and death of family member; Z88.8 Allergy status to other drugs, medicaments and biological substances
CPT/HCPCS: 36415; 71045; 80053; 80061; 80305; 80320; 81001; 81025; 83036; 84443; 85025; 87081; 87088; 87811; 99285

== ENCOUNTER 2022-04-25 19:48 | Emergency (ER) | payer MEDICAID ==
[~2022-04-25] VITALS: Ht 170.2 cm; Wt 84.1 kg
[~2022-04-25 19:48] MED LIST changes: +CITA-124 PO; -CITA20TA28 PO; -HYDR-3686 PO; +HYDR-3717 PO; +MELA3TAB39 PO; -NICO-668 BC; +PALI3TAB5 PO; -PALI6TAB6 PO; -TRAZ-251 PO
[2022-04-26 01:56] VITALS: BP 119/71
== END 2022-04-26 01:58 | disposition home or self-care (01) ==
LOC: ER 19:49
DX: F32.A Depression, unspecified (principal); F41.9 Anxiety disorder, unspecified; Z88.8 Allergy status to other drugs, medicaments and biological substances; Z91.040 Latex allergy status; Z79.899 Other long term (current) drug therapy
CPT/HCPCS: 99281; 99283

== ENCOUNTER 2023-04-13 19:20 | Emergency (ER) | payer MEDICAID ==
[~2023-04-13] VITALS: Ht 170.2 cm; Wt 85.8 kg
[2023-04-13 19:51] VITALS: BP 121/79; PULSE 59; RESP 18; TEMP 98.1; O2SAT 97
== END 2023-04-14 00:52 | disposition left against medical advice (07) ==
LOC: ER 19:21
DX: R20.0 Anesthesia of skin (principal); Z53.21 Procedure and treatment not carried out due to patient leaving prior to being seen by health care provider
CPT/HCPCS: 99281

== ENCOUNTER 2023-04-14 17:24 | Emergency (ER) | payer MEDICAID ==
[~2023-04-14] VITALS: Ht 170.2 cm; Wt 88.6 kg
[2023-04-14 19:06] VITALS: BP 141/67; PULSE 73; RESP 16; TEMP 98.6; O2SAT 100
--- NOTE | 2023-04-14 19:50 | NUR ---
pt does lay on the stretcher with her eyes closed talking to herself, she is pleasant when approached.
--- NOTE | 2023-04-14 20:01 | NUR ---
she took out her IV
== END 2023-04-14 20:37 | disposition home or self-care (01) ==
LOC: ER 17:25
DX: F29 Unspecified psychosis not due to a substance or known physiological condition (principal); F20.9 Schizophrenia, unspecified; F41.9 Anxiety disorder, unspecified; Z88.8 Allergy status to other drugs, medicaments and biological substances; Z88.5 Allergy status to narcotic agent; Z79.899 Other long term (current) drug therapy
CPT/HCPCS: 99283

== ENCOUNTER 2023-04-16 13:19 | Emergency (ER) | payer MEDICAID ==
[~2023-04-16] VITALS: Ht 170.2 cm; Wt 86.4 kg
[2023-04-16 15:21] LABS: BASOPHILS # (AUTO) 0.1 X10'3 (0-0.2); BASOPHILS % (AUTO) 0.7 % (0-1); EOSINOPHILS # (AUTO) 0.1 X10'3 (0-0.9); EOSINOPHILS % (AUTO) 0.7 % (0-6); HEMATOCRIT 41.1 % (35.0-45.0); HEMOGLOBIN 13.7 g/dl (12.0-16.0); LYMPHOCYTES % (AUTO) 8.8 % (21-51); MEAN CORPUSCULAR HEMOGLOBIN 29.4 PG (27.0-31.0); MEAN CORPUSCULAR HGB CONC 33.3 g/dL (33.0-36.5); MEAN CORPUSCULAR VOLUME 88.3 FL (78-98); MEAN PLATELET VOLUME 10.7 FL (7.4-10.4); MONOCYTES # (AUTO) 0.9 X10'3 (0-0.9); MONOCYTES % (AUTO) 7.7 % (2-12); NEUTROPHILS # (AUTO) 9.7 X10'3 (1.8-7.7); NEUTROPHILS % (AUTO) 82.1 % (42-75); PLATELET COUNT 174 X10'3 (140-440); RED BLOOD COUNT 4.65 X10'6 (4.20-5.60); WHITE BLOOD COUNT 11.8 X10'3 (4.5-11.0)
[2023-04-16 15:33] LABS: ALANINE AMINOTRANSFERASE 26 U/L (12-78); ALBUMIN 4.4 G/DL (3.4-5.0); ALBUMIN/GLOBULIN RATIO 1.3 (1.1-1.5); ALKALINE PHOSPHATASE 71 IU/L (46-116); ANION GAP 14 (8-16); ASPARTATE AMINO TRANSFERASE 17 U/L (10-37); BILIRUBIN,TOTAL 1.3 MG/DL (0.1-1.0); BLOOD UREA NITROGEN 4 MG/DL (7-18); BUN/CREATININE RATIO 5.5 (10.0-20.0); CALCIUM 9.1 MG/DL (8.5-10.1); CHLORIDE 101 MMOL/L (99-107); CREATININE 0.73 MG/DL (0.40-0.90); GLUCOSE 119 MG/DL (70-104); POTASSIUM 3.4 MMOL/L (3.5-5.1); SODIUM 139 MMOL/L (135-145); TOTAL CARBON DIOXIDE 23.8 MMOL/L (24-32); TOTAL PROTEIN 7.8 G/DL (6.4-8.2); eCRCL 100 ML/MIN; eGFR 88 ML/MIN
[2023-04-16 15:42] LABS: ETHANOL < 10 MG/DL (<10); THYROID STIMULATING HORMONE 1.43 ulU/ml (0.34-4.50)
--- NOTE | 2023-04-16 16:49 | NUR ---
Patient brought over to bed 24 from main ER. Patient is acting very child-like and talking in baby talk. Therapist and family at bedside. Patient unwilling to give urine sample.
[2023-04-16] MEDS ORDERED: LORazepam 2 mg/ml vial IM ONE (16:50)
[2023-04-16] MEDS ORDERED: diphenhydrAMINE 50 mg/ml inj IM ONE (16:50)
--- NOTE | 2023-04-16 17:19 | NUR ---
Patient was escalating in behavior and Ativan 2 mg and Benadryl 50 mg given IM. Patient has quieted down since and her friends that live next door are with her.
[2023-04-16] MEDS ORDERED: haloperidol lactate 5mg/ml inj IM ONE (17:45)
[2023-04-16] MEDS ORDERED: OLANZapine **IM** 10 mg inj. IM ONE (18:05)
--- NOTE | 2023-04-16 18:05 | NUR ---
PT VISITOR HANDED TECH A NOTE WITH VISITORS PHONE NUMBER FOR CONTACT INFORMATION. RAPHAEL SR- [phone], JERRY SR-[phone], AND GUILLERMO BETANCUR- [phone]. NOTE PLACED IN THE PT BINDER
--- NOTE | 2023-04-16 19:30 | NUR ---
Received pt nelli, friends at the bedside, day nurse administering 50 benadryl, 2 ativan 10 haldol. Friends left at 1915 and pt is currently sleeping.
--- NOTE | 2023-04-16 22:15 | NUR ---
Pt appears to be sleeping
--- NOTE | 2023-04-17 00:19 | NUR ---
Pt appears to be sleeping
--- NOTE | 2023-04-17 01:57 | NUR ---
Pt appears to be sleeping
--- NOTE | 2023-04-17 05:04 | NUR ---
Pt awake, gave urine sample, does not know why she is here, calm and cooperative. States she hears voices..."the ones that God talks to me about"
[2023-04-17 05:23] LABS: URINE HCG NEGATIVE (NEG)
[2023-04-17 05:27] LABS: BILIRUBIN,URINE NEGATIVE (Neg); CLARITY,URINE SLIGHTLY CLOUDY (Clear); COLOR,URINE YELLOW (Yellow); GLUCOSE, URINE NEGATIVE (Neg); KETONES,URINE 15 mg/dl (Neg); LEUKOCYTE ESTERASE ,URINE SMALL (Neg); NITRITES, URINE NEGATIVE (Neg); OCCULT BLOOD,URINE TRACE-INTACT (Neg); PROTEIN,URINE NEGATIVE (Neg); UROBILINOGEN,URINE 0.2 E.U/dL (0.2-1.0)
[2023-04-17 05:42] LABS: URINE AMPHETAMINE SCREEN NEGATIVE (Neg); URINE BARBITUATE SCREEN NEGATIVE (Neg); URINE BENZODIAZEPINES SCREEN NEGATIVE (Neg); URINE CANNABINOID SCREEN NEGATIVE (Neg); URINE COCAINE SCREEN NEGATIVE (Neg); URINE METHADONE SCREEN NEGATIVE (Neg); URINE OPIATE SCREEN NEGATIVE (Neg); URINE PHENCYCLIDINE SCREEN NEGATIVE (Neg)
[2023-04-17 05:48] LABS: UA COLLECTION TYPE NON-SPECIFIED
[2023-04-17 05:50] LABS: BACTERIA,URINE 1+ /HPF (Neg); MUCUS STRANDS MANY /LPF (Neg); SQUAMOUS EPITHELIAL CELL,UR MANY /LPF (FEW); TRANSITIONAL EPI CELLS,URINE FEW /HPF
--- NOTE | 2023-04-17 06:07 | NUR ---
packet sent to [facility]
--- NOTE | 2023-04-17 06:46 | NUR ---
Patient appears to be sleeping supine. No distress observed. Continue to monitor.
[2023-04-17] MEDS ORDERED: HYDR-3686 PO (07:29)
[2023-04-17] MEDS ORDERED: CITA20TA28 PO (07:29)
--- NOTE | 2023-04-17 08:36 | NUR ---
Per Dictating Machine Typist, patient was in lobby with therapist and was attempting to take a baby from another patient that was in the lobby. Patient was very loud and disruptive in the lobby. Patient did receive a B52 yesterday around 1709. Patient has been sleeping since RN arrived this morning. Patient's breakfast at bedside. Continue to monitor.
--- NOTE | 2023-04-17 09:28 | NUR ---
Note ladonna in ED - 04/17/23 at 1021 by SUKHDEEP Mom visiting at bedside. Patient and mom chatting. No distress observed. Continue to monitor.
--- NOTE | 2023-04-17 10:21 | NUR ---
Simone TROTTER, evaluating patient. No distress observed. Continue to monitor.
--- NOTE | 2023-04-17 11:50 | NUR ---
Patient is on a 5150 Hold and pending placement. Patient was advised. No distress observed. Continue to monitor.
--- NOTE | 2023-04-17 13:38 | NUR ---
Patient ate her lunch and is now sleeping. No distress observed. Continue to monitor.
--- NOTE | 2023-04-17 14:21 | NUR ---
Break relief. Pt resting in bed, eyey closed. RR even and unlabored. No s/s of distress.
--- NOTE | 2023-04-17 14:51 | NUR ---
Pt up to the RR and changed her clothes. Pt requested to color. Pt is calm and cooperative.
--- NOTE | 2023-04-17 16:32 | NUR ---
Patient was coloring but fell asleep. No distress observed. Continue to monitor.
--- NOTE | 2023-04-17 17:25 | NUR ---
Patient ate dinner at bedside. No distress observed. Continue to monitor.
[2023-04-17 18:45] VITALS: O2SAT 97
--- NOTE | 2023-04-17 19:01 | NUR ---
Received pt resting, pt denies MH symptoms and seems to be in good spirits.
--- NOTE | 2023-04-17 22:21 | NUR ---
Pt up using the bathroom, requesting hygiene items. Pt is pleasant and friendly with staff.
--- NOTE | 2023-04-18 00:30 | NUR ---
Pt appears to be sleeping.
--- NOTE | 2023-04-18 03:32 | NUR ---
Pt appears to be sleeping.
[2023-04-18 05:56] VITALS: BP 109/58; PULSE 68; TEMP 97.9
--- NOTE | 2023-04-18 06:29 | NUR ---
Patient sleeping. No distress observed. Continue to monitor.
--- NOTE | 2023-04-18 08:09 | NUR ---
Patient continues to sleep. No distress observed. Continue to monitor.
--- NOTE | 2023-04-18 08:15 | NUR ---
Patient sitting up and eating. No distress observed. Continue to monitor.
[2023-04-18 08:25] VITALS: RESP 16
--- NOTE | 2023-04-18 08:40 | NUR ---
Patient's therapist visiting with patient. No distress observed. Continue to monitor.
--- NOTE | 2023-04-18 09:32 | NUR ---
Pt requested therapist to be added to contacts in chart: Paty Yañez [facility]
--- NOTE | 2023-04-18 10:23 | NUR ---
Patient sleeping supine. No distress observed. Continue to monitor.
--- NOTE | 2023-04-18 12:13 | NUR ---
Patient eating lunch. No distress observed. Continue to monitor.
== END 2023-04-18 13:50 | disposition still patient (30) ==
LOC: ER 13:20
DX: F29 Unspecified psychosis not due to a substance or known physiological condition (principal); Z20.822 Contact with and (suspected) exposure to COVID-19; F20.9 Schizophrenia, unspecified; F41.9 Anxiety disorder, unspecified; Z60.2 Problems related to living alone; Z88.8 Allergy status to other drugs, medicaments and biological substances; Z79.899 Other long term (current) drug therapy
CPT/HCPCS: 36415; 80053; 80305; 80320; 81001; 81025; 83735; 84443; 85025; 87811; 93005; 96372; 99285; J1200; J1630; J2060